=== PATIENT | female | born 1950 | race Caucasian/White ===

== ENCOUNTER 2019-01-30 18:06 | Inpatient (IN) ==
[2019-01-30] MEDS ORDERED: MAGNESIUM HYDROXIDE SUSP 30 ML UDC PO PRN (18:25)
[2019-01-30] MEDS ORDERED: POLYETHYLENE (MIRALAX) 17 GM PACK PO PRN (18:25)
[2019-01-30] MEDS ORDERED: ALUMINUM/MAGNESIUM SUSP 30 ML UDC PO PRN (18:25)
[2019-01-30] MEDS ORDERED: ACETAMINOPHEN 325 MG TAB PO PRN (18:25)
[2019-01-30] MEDS ORDERED: HEPARIN SODIUM/DEXTROSE 25,000 UNITS/500 ML BAG IV SCH (18:45)
--- OUTSIDE RECORDS SUMMARY | 2019-01-30 20:55 | External Medical Summary | Continuity of Care Document ---
:1950 Author Name Yves Cruz Address Unavailable Unavailable , Care Team Providers Name Role Phone Non[facility] [email or web address] Unavailable [email or web address] Randi TREJO Unavailable Unavailable Problems Active medical history not documented Allergies and Adverse Reactions Lipitor TABS (Allergy) Medications Levemir FlexTouch 100 UNIT/ML Subcutaneous Solution Pen-inje ctor; 52 units BID Start: 08-Feb-2016 Refills: 0 metFORMIN HCl - 500 MG Oral Tablet; 1 tablet twice a day Start: 08-Feb-2016 Refills: 0 Pantoprazole Sodium 40 MG Oral Tablet Delayed Release; TAKE 1 TABLET DAILY. Start: 08-Feb-2016 Refills: 0 Losartan Potassium-HCTZ 50-12.5 MG Oral Tablet; TAKE 1 TABLE T DAILY. Start: 08-Feb-2016 Refills: 0 Levothyroxine Sodium 112 MCG Oral Tablet; TAKE 1 TABLET MICHAEL Y DIRECTED. Start: 08-Feb-2016 Refills: 0 Simvastatin 40 MG Oral Tablet; TAKE 1 TABLET DAILY DIRECT ED. Start: 08-Feb-2016 Refills: 0 traZODone HCl - 50 MG Oral Tablet; TAKE 1/2 TABLET AT BEDTIM E. Start: 08-Feb-2016 Refills: 0 Sertraline HCl - 100 MG Oral Tablet; TAKE 1 TABLET DAILY DIRECTED. Start: 08-Feb-2016 Refills: 0 Fish Oil 1000 MG Oral Capsule; 2 capsules BID Start: 08-Feb-2016 Refills: 0 Procedures History of Cholecystectomy Status: Compl eted History of Section Status: Comp leted Immunizations Immunizations not documented Plan of Treatment Planned Observations Planned Goals not documented Results No Known Results Results not documented
[2019-01-30] MEDS: PATIENT'S HEIGHT AND/OR WEIGHT NEEDED SCH (21:11)
[2019-01-30] MEDS ORDERED: ALBUT/IPRATROP 3MG/0.5MG NEB 3 ML VIAL NEB PRN (21:12)
--- NOTE | 2019-01-30 21:25 | History & Physical Report ---
Date of Service January 30, 2019 Assessment & Plan (1) Sepsis: Admit patient to ICU for sepsis and metabolic acidosis Vital signs every 4 hours per ICU ABGs pending BNP, CBC, CMP, repeat lactic acid, influenza A and B swab, blood cultures, urine cultures, respiratory cultures pending, procalcitonin to rule out pneumonia. VQ scan to rule out pulmonary embolism as a possible cause of acute respiratory failure. Troponin x2 every 6 hours with EKGs. TTE to rule out cardiac strain Continue heparin drip that was started in [place] emergency room until proven otherwise that there was no PE. Chest x-ray stat pending Patient failed treatment with azithromycin Started cefepime to cover for Pseudomonas as well, empirically. Follow-up blood and respiratory cultures. DVT prophylaxis patient is already on heparin drip. Full code Present on Admission?: Yes (2) Hypertension: This point patient has lower blood pressure 102/60. Hold home medication losartan hydrochlorothiazide. Continue monitoring blood pressure per ICU. If patient continues to be hypotensive give only small boluses of normal saline such as 250 cc. Watch for volume overload Present on Admission?: Yes (3) Hyperlipidemia: Continue rosuvastatin 20 mg nightly. Lipid panel pending in a.m. Present on Admission?: Yes (4) Metabolic acidosis: As above. Repeat lactic acid. Treat with antibiotics and underlying cause. Present on Admission?: Yes (5) Diabetes mellitus type 2 in obese: Glycemic control per pharmacy. Hold metformin while patient is in acute kidney failure and needs radiological procedures in the hospital. Present on Admission?: Yes (6) Hypothyroidism: Continue home dose of Synthroid 88 mcg. Present on Admission?: Yes (7) Nicotine abuse: Offered nicotine patch. Patient advised to stop smoking. Present on Admission?: Yes (8) Congestive heart failure: BNP elevated to 158 (normal 0-100) per [place] ED Repeat BNP Strict in and out Daily weight Watch for volume overload Present on Admission?: Yes (9) Acute kidney failure: Avoid nephrotoxic agents. Monitor creatinine and GFR. Hold metformin while patient in acute kidney failure. Present on Admission?: Yes (10) Acute respiratory failure: Patient is not on oxygen at home. Could be related to pulmonary embolism and or pneumonia. Started cefepime 2 g now and then managed by pharmacy Solu-Medrol 40 mg twice daily IV Duo nebs every 4 hours as needed for shortness of breath Symbicort 2 puffs twice daily Continue home dose of albuterol HFA every 6 hours as needed Respiratory culture pending Supportive treatment and continue supplemental oxygen while patient hypoxic. Present on Admission?: Yes History of Present Illness Chief Complaint: Shortness of breath, subjective fever and cough for 3 weeks Primary Care Provider: Ana Carbajal Patient is a 68 years old female with past medical history of hypertension, diabetes, hyperlipidemia, hypothyroidism on Synthroid , anxiety disorder, smoker approximately half a pack for 35 years is direct admit from [facility] emergency department to [facility] for respiratory failure and suspicion that patient may have pulmonary embolism since her d-dimer was elevated to 4000. Patient presented today to the [facility] emergency room for shortness of breath and feeling sick. Patient states that her cough and broke bronchitis has been ongoing for 3 weeks and it started when she was exposed to her daughter, who was also sick. Patient saw her primary care physician for 3 times for this issue and she was prescribed Deltasone oral taper, azithromycin, cough medicine guaifenesin codeine. Patient states she started taking this medication on Friday this week and it did not help her and that is why she went to the emergency room [place] with her . Patient said also that she had urinary tract infection after she was diagnosed with bronchitis and that has been ongoing as well. Patient said that she does not use oxygen at home but they put her in the emergency room due to shortness of breath to 2 L of oxygen. Patient never had issues with her kidneys in the past. She takes metformin p.o. to control her diabetes. In the emergency room at [facility] labs were drawn and it shows a BNP of 158 (normal is 0-100), D-dimers of 4000 (100-400), lactic acid of 3(normal 0.4-2), PT 14.9, INR 1.29, PTT 15.4, WBC 26.6, troponin of 0.11 (normal 0-0.10), elevated creatinine kinase 814, creatinine 3.7, GFR 13, sodium 137, potassium 2.9, anion gap 21.9, BUN 51. Repeated lactic acid was 2.8. EKG shows sinus rhythm with LVH at [address] segment Patient was given 2 L of normal saline in the [place] emergency room, and [address] in [address] EMS. She was given Solu-Medrol 125 mg IV in the emergency room, she was given albuterol treatment, she was given Zosyn 3.3751, and patient was started on heparin drip for possible PE. Decision was made to admit patient to the intensive care unit for possibly pulmonary embolism, sepsis, metabolic acidosis, acute kidney failure, dehydration, possible pneumonia, and possibly urinary tract infection. 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 Beliefs That Will Affect Care: None Current Living Situation: Spouse Other Information That Helps Us Care for You: Yes Feels Safe at Home: Yes Safety Concerns: Feels Safe At This Time Smoking Status: Current every day smoker Tobacco Type: cigarettes ; Cigarettes Per Day: 10 ; Tobacco Cessation Education Requested by Patient: No Hx Alcohol Use: No Hx Substance Use: No Review of Systems Review of Systems: All systems reviewed & are unremarkable except as noted in HPI & below Physical Exam Constitutional: WD/WN, vitals as above well developed, + acute distress and + obese Eyes: PERRL, conjunctivae normal, anicteric sclerae ENMT: external ear and nose normal, oropharynx normal Neck: trachea midline, no thyromegaly Respiratory: Auscultation: + crackles and + wheezes Cardiovascular: Heart Sounds: normal S1 and normal S2 Palpation: + palpable S3 Vessels: dorsalis pedis pulses present Gastrointestinal (Abdomen): normal bowel sounds, soft, nontender, no hepatosplenomegaly Musculoskeletal: no cyanosis or clubbing, extremities motor strength 5/5 Skin: no rashes, warm and dry Neurologic: patellar DTR's 2+ bilat, sensation intact Lymphatic: no cervical or axillary lymphadenopathy Code Status & VTE Plan Code Status Full code VTE Prophylaxis Plan VTE Prophylaxis will be ordered: Yes PG Care Time/CCT Total # of Minutes Spent Total Time Spent with Patient: Total time spent is greater than 50% in coordination of care (as documented) at patient's floor/unit and/or counseling patient:
[2019-01-30] MEDS ORDERED: PHARMACY GLYCEMIC MGMT CONSULT PRN (21:47)
[2019-01-30] MEDS ORDERED: SODIUM CHLOR 7% 4 ML NEB INH PRN (22:26)
[2019-01-30] MEDS ORDERED: methylPREDNISolone 40 MG in SYRINGE 0 ML IV SCH (22:30)
--- NOTE | 2019-01-30 22:31 | XRay Report ---
XR chest 1V portable CLINICAL HISTORY: Pneumonia. Shortness of breath. COMPARISON STUDY: Outside [facility] study dated 01/30/2019 FINDINGS: The heart is enlarged. There is an interstitial pulmonary edema pattern. There are small bi lateral pleural effusions.[ IMPRESSION: Cardiomegaly. Small bilateral pleural effusions. Interstitial pulmonary edema pattern. Cl inical and radiographic follow-up is recommended. Electronically signed by: Ravi Lake M.D. 01/30/2019 10:30 PM
--- NOTE | 2019-01-30 22:35 | Nuclear Medicine Report ---
NUCLEAR MEDICINE PULMONARY VENTILATION PERFUSION STUDY CLINICAL HISTORY: Shortness of breath. Possible pulmonary embolism. COMPARISON STUDY: Chest x-ray performed the same day FINDINGS: The patient was ventilated utilizing 32.3 mCi of technetium 99m DTPA aerosol. The patient w as perfused utilizing 5.3 mCi of technetium 99m MAA. There is a heterogeneous perfusion pattern with multiple small moderate perfusion defects. The ventil ation study demonstrates central deposition of the aerosol consistent with airway disease. The majori ty of the defects appear matched. This examination is of low to intermediate probability of acute pul monary embolism. CT angiography the chest should be considered in follow-up. IMPRESSION: 1. Difficult study to interpret given the abnormal chest x-ray with interstitial pulmonary edema, and bilateral pleural effusions 2. Multiple small to moderate perfusion defects, most of which appear to be matched. 3. This examination is of low to intermediate probability of acute pulmonary embolism. CT angiography of the chest should be considered in follow-up Electronically signed by: Ravi Lake M.D. 01/30/2019 10:34 PM
[2019-01-30] MEDS ORDERED: ALBUTEROL HFA 8 GM INHALER INH ONE (23:00)
[2019-01-30] MEDS ORDERED: GUAIFENESIN/DEXTROM SYRUP 200MG/20MG 10ML UDC PO PRN (23:11)
[2019-01-30 23:22] LABS: Basophils # (auto) 0.01 K/uL (0-0.2); Eosinophils # (auto) 0.63 K/uL (0-0.5); Hematocrit (blood only) 27.9 % (37-47); Hemoglobin 9.2 g/dL (12.0-16.0); Immature Granulocytes # (auto) 0.07 K/uL (0.00-0.02); Immature Granulocytes % (auto) 0.3 %; Lymphocytes # (auto) 0.79 K/uL (1.2-3.4); Lymphocytes % (auto) 3.8 %; Mean Corpuscular Hemoglobin 27.5 pg (25-34); Mean Corpuscular Volume 83.3 fL (80-100); Mean Platelet Volume 10.2 fL (7.4-10.4); Monocytes # (auto) 0.57 K/uL (0.11-0.59); Monocytes % (auto) 2.7 %; Neutrophils # (auto) 18.66 K/uL (1.4-6.5); Neutrophils % (auto) 90.2 %; Platelet Count 203 K/uL (130-400); RDW Coefficient of Variation 14.4 % (11.5-14.5); RDW Standard Deviation 43.5 fL (36.4-46.3); Red Blood Count 3.35 M/uL (4.2-5.4); White Blood Count 20.73 K/uL (4.8-10.8)
[2019-01-30] MEDS ORDERED: CARBOHYDRATES FOR HYPOGLYCEMIA PO PRN (23:30)
[2019-01-30] MEDS ORDERED: GLUCAGON FOR INJ 1 MG VIAL IM PRN (23:30)
[2019-01-30] MEDS ORDERED: GLUCOSE 10 TABS/TUBE PO PRN (23:30)
[2019-01-30] MEDS ORDERED: DEXTROSE 50% 50 ML SYRINGE IV PRN (23:30)
[2019-01-30] MEDS ORDERED: GLUCOSE 40% GEL 15 GM TUBE PO PRN (23:30)
[2019-01-30 23:36] LABS: INR 1.4 (0.9-1.1); Partial Thromboplastin Ratio 2.9; Prothrombin Time 14.1 Seconds (9.0-12.0)
[2019-01-30 23:38] LABS: Appearance Urine Turbid (Clear); Bilirubin Urine Negative (Negative); Blood Urine 2+ (Negative); Color Urine Yellow; Epithelial Cell Urine Auto >30 /lpf (0-5); Glucose Urine UA Negative (Negative); Ketones Urine Negative (Negative); Leukocyte Esterase Urine Negative (Negative); Nitrite Urine Negative (Negative); Protein Urine 1+ (Negative); RBC Urine Automated 0-4 /hpf (0-4); Specific Gravity Urine 1.019 (1.000-1.030); Urobilinogen Urine Negative (Negative)
[2019-01-30 23:51] LABS: C Reactive Protein 15.5 mg/dl (0-0.29); Magnesium 1.9 mg/dl (1.8-2.4)
[2019-01-30 23:56] LABS: Troponin I 0.053 ng/ml (0-0.045)
[2019-01-30 23:57] LABS: Amorphous Sediment Urine Present (None Prsent); Bacteria Urine Automated 1+ (Negative); Calcium Oxalate Crystals Urine Present (None Prsent)
[2019-01-31 00:03] LABS: D Dimer 5240 ug/L FEU (0-500); Partial Thromboplastin Time 77.4 Seconds (21.0-31.0)
[2019-01-31 00:06] LABS: Influenza A virus by PCR Neg for Influ A (Neg); Influenza B virus by PCR Neg for Influ B (Neg)
[2019-01-31 00:15] LABS: Potassium 3.3 mmol/L (3.5-5.1)
[2019-01-31] MEDS: CEFEPIME 2,000 MG in SYRINGE 7.5 ML IV SCH ×2 (00:18→23:11)
[2019-01-31] MEDS: PATIENT'S ALLERGY INFO NEEDS ENTERED SCH ×3 (00:20→04:59)
--- NOTE | 2019-01-31 00:23 | Critical Care Consultation ---
Date of Consultation January 31, 2019 Assessment & Plan (1) Acute respiratory failure with hypoxia: -- Sepsis with shock Source likely pneumonia Follow-up septic work-up, procalcitonin, ESR: 86, CRP: 15.5, urine Legionella, mycoplasma IgM Influenza a and B PCR negative, nasal MRSA negative Continue with O2 supplementation to keep oxygen saturation between 90 to 92% BiPAP nightly and as needed shortness of breath Start Levophed if need be to Maintain map greater than 65 Continue with broad-spectrum antibiotic along with atypical coverage (doxycycline) given that the patient's QTC is 510 Will DC steroids for the time being. 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 -- HAGMA Deltadelta: Less than 1, metabolic acidosis plus non-anion gap acidosis Likely sec to lactic acidosis as per the labs from the other hospital Follow-up urine lites Follow up VBG Monitor --Acute kidney injury Follow-up urine lites Monitor BUN/creatinine Avoid nephrotoxic medication Strict in and out --Elevated troponin Likely type II LA EKG shows no ST-T wave changes Monitor --Elevated d-dimer Likely secondary to sepsis VQ scan reviewed personally no VQ mismatch appreciated No swelling of bilateral lower extremity DC heparin drip --Hypothyroidism Follow-up TSH --Normocytic anemia Monitor H&H --Diabetes mellitus type 2 Insulin sliding scale --Hypokalemia Replace it --Secondary hypercoagulable state Subcu heparin (2) Acute kidney failure: (3) Hypothyroidism: (4) Metabolic acidosis: (5) Sepsis: (6) Fluid overload: (7) Diabetes mellitus type 2 in obese: (8) Hyperlipidemia: (9) Hypertension: History of Present Illness Reason for Consultation: Sepsis with shock Attending Physician: Tony Celaya MD History of Present Illness 68-year-old female with past medical history of hypertension, hypothyroidism, diabetes mellitus type 2, active smoker is transferred from [facility] emergency department as patient was found to be hypoxic over there with saturation in the 80s. Patient had d-dimer done over there which was found to be 4000 and a creatinine being 3.7 they are worried about PE and wanted to VQ scan the facility which was not available over there. Patient got 2 L of normal saline over there and [address] patient got to 50 mL while in the ICU here. She also got Zosyn and was started on heparin drip for possible PE. At the time of presentation. Patient is coughing actively in mild respiratory distress. She states that she has been having cough and shortness of breath which is getting progressively worse in the last 3 weeks she took antibiotics 2 courses so far along with prednisone and failed to improve. Cough is yellowish- green in color. Positive subjective fever positive chills. She did complain of dysuria before and mild dysuria today. Does complain of loose bowel movements which she associates with metformin and it has not changed in frequency or consistency. No hemoptysis.No hematuria, no hematochezia. No runny nose or tearing from the eyes. Patient's daughter had similar symptoms prior to patient falling sick. Patient denies any travel history. Patient has never been intubated in the past. 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 No recent contact to any domestic animals, no pets at home. Allergies Allergy/AdvReac Type Severity Reaction Status Date / Time atorvastatin [From Lipitor] AdvReac Weakness Verified 01/30/19 21:45 Home Medications Home Medications Medication Instructions Recorded Confirmed Type albuterol sulfate [Ventolin HFA] 2 inh INHALATION Q4H PRN 01/30/19 01/30/19 History codeine-guaifenesin 5 - 10 ml PO HS PRN 01/30/19 01/30/19 History dulaglutide [Trulicity] 0.75 mg SUBCUT WK 01/30/19 01/30/19 History levothyroxine 88 mcg PO DAILY 01/30/19 01/30/19 History losartan-hydrochlorothiazide 1 tab PO DAILY 01/30/19 01/30/19 History metformin 1,000 mg PO DAILY 01/30/19 01/30/19 History pantoprazole 40 mg PO DAILY 01/30/19 01/30/19 History rosuvastatin 20 mg PO DAILY 01/30/19 01/30/19 History sertraline 100 mg PO DAILY 01/30/19 01/30/19 History trazodone 50 mg PO HS PRN 01/30/19 01/30/19 History Patient History Social History Preferred Language: Danish Communication Ability: Effective Manager Fleet Required: No Beliefs That Will Affect Care: None Current Living Situation: Spouse Other Information That Helps Us Care for You: Yes Feels Safe at Home: Yes Safety Concerns: Feels Safe At This Time Smoking Status: Current every day smoker Tobacco Type: cigarettes ; Cigarettes Per Day: 10 ; Tobacco Cessation Education Requested by Patient: No Hx Alcohol Use: No Hx Substance Use: No Review of Systems Review of Systems: All systems reviewed & are unremarkable except as noted in HPI & below Physical Exam Physical Exam: Constitutional: Mild respiratory distress HEENT: EOMI, PERRLA Respiratory system: Decreased air entry bilaterally, positive bilateral lower lobe crackles, no wheeze, no rhonchi CVS: S1-S2 positive, positive 2 out of 6 systolic ejection murmur appreciated best at the aorta Abdomen: Soft, nontender, nondistended, positive bowel sounds x4 Extremities: +2 pulses bilaterally radialis/ dorsalis pedis, no edema, no cyanos is Neuro: Awake alert oriented x3 Psych: Normal mood and affect G/U: No Martinez Constitutional: + in distress Eyes: PERRL, conjunctivae normal, anicteric sclerae ENMT: external ear and nose normal, oropharynx normal Neck: trachea midline, no thyromegaly normal visual inspection; negative Kernig's sign Respiratory: Auscultation: + crackles Cardiovascular: RRR, no murmur, no edema Heart Sounds: + murmur Vessels: + JVD Extremities: normal capillary refill; no edema Chest (Breasts): normal inspection/palpation of breasts Gastrointestinal (Abdomen): normal bowel sounds, soft, nontender, no hepatosplenomegaly Musculoskeletal: no cyanosis or clubbing, extremities motor strength 5/5 Skin: no rashes, warm and dry Neurologic: PERRL, EOMI, accommodation nl, no face palsy, no dysarthria Psychiatric: A+Ox3, euthymic affect Orientation: alert and oriented x 3 Apperance: appropriately groomed Lymphatic: no cervical or axillary lymphadenopathy Results & Data Vital Signs (Past 12 Hours) Vital Signs Temp Pulse Resp BP BP Pulse Ox 01/30/19 23:01 74 18 103/64 95 01/30/19 23:00 73 21 95 01/30/19 22:51 72 21 90/58 L 94 10/05/19 22:50 78 21 94 01/30/19 22:42 89 21 103/77 95 01/30/19 22:40 93 H 20 92 01/30/19 22:31 78 25 H 89/59 L 95 01/30/19 22:29 82 23 98/50 L 94 01/30/19 22:28 92 01/30/19 21:43 36.5 C 20 102/60 96 Laboratory Results 01/30/19 23:06 01/30/19 23:03 01/31/19 01/30/19 01/30/19 Range/Units 00:08 23:15 23:06 WBC (4.8-10.8) K/uL RBC (4.2-5.4) M/uL Hgb (12.0-16.0) g/dL Hct (37-47) % MCV (80-100) fL MCH (25-34) pg MCHC (32-36) g/dL RDW Std Deviation (36.4-46.3) fL RDW Coeff of Brody (11.5-14.5) % Plt Count (130-400) K/uL MPV (7.4-10.4) fL Immature Gran % (Auto) % Neut % (Auto) % Lymph % (Auto) % [place] % (Auto) % Eos % (Auto) % Baso % (Auto) % Immature Gran # (Auto) (0.00-0.02) K/uL Neut # (Auto) (1.4-6.5) K/uL Lymph # (Auto) (1.2-3.4) K/uL [place] # (Auto) (0.11-0.59) K/uL Eos # (Auto) (0-0.5) K/uL Baso # (Auto) (0-0.2) K/uL ESR (0-21) mm/hr PT (9.0-12.0) Seconds INR (0.9-1.1) APTT (21.0-31.0) Seconds PTT Ratio D-Dimer (0-500) ug/L FEU Sodium (136-145) mmol/L Potassium (3.5-5.1) mmol/L Chloride (98-107) mmol/L Carbon Dioxide (21-32) mmol/L Anion Gap (3-11) BUN (7-18) mg/dl Creatinine (0.6-1.2) mg/dl Est Cr Clr Drug Dosing ml/min Est GFR ( Amer) Est GFR (Non-Af Amer) BUN/Creatinine Ratio (10-20) Glucose (70-99) mg/dl POC Glucose 253 H (70-99) Estimat Average Glucose Hemoglobin A1c Lactate (0.4-2.0) mmol/L Calcium (8.5-10.1) mg/dl Phosphorus Magnesium (1.8-2.4) mg/dl Total Bilirubin (0.2-1) mg/dl AST (15-37) U/L ALT (12-78) U/L Alkaline Phosphatase (45-117) U/L Troponin I (0-0.045) ng/ml C-Reactive Protein (0-0.29) mg/dl NT-Pro-B Natriuret Pep (0-900) pg/ml Total Protein (6.4-8.2) gm/dl Albumin (3.4-5.0) gm/dl Globulin (2.5-4.0) gm/dl Albumin/Globulin Ratio (0.9-2) Procalcitonin (0-0.5) ng/ml TSH Urine Color Yellow Urine Appearance Turbid A (Clear) Urine pH 5.0 (4.5-7.5) Ur Specific [place] 1.019 (1.000-1.030) Urine Protein 1+ H (Negative) Urine Glucose (UA) Negative (Negative) Urine Ketones Negative (Negative) Urine Blood 2+ H (Negative) Urine Nitrite Negative (Negative) Urine Bilirubin Negative (Negative) Urine Urobilinogen Negative (Negative) Ur Leukocyte Esterase Negative (Negative) Urine WBC (Auto) 5-10 H (0-5) /hpf Urine RBC (Auto) 0-4 (0-4) /hpf U Hyaline Cast (Auto) 5-10 H (0-5) /lpf U Epithel Cells (Auto) >30 H (0-5) /lpf Urine Bacteria (Auto) 1+ H (Negative) Ur Renal Epithelial Cell Not Reportable Calcium Oxalate Crystal Present A (None Prsent) Amorphous Sediment Present A (None Prsent) Urine Yeast Not Reportable Nasal Screen MRSA (PCR) (Negative) Influenza Type A (PCR) (Neg) Influenza Type B (PCR) (Neg) Mycoplasma pneumon IgM Pending 01/30/19 01/30/19 01/30/19 Range/Units 23:06 23:03 23:03 WBC 20.73 H (4.8-10.8) K/uL RBC 3.35 L (4.2-5.4) M/uL Hgb 9.2 L (12.0-16.0) g/dL Hct 27.9 L (37-47) % MCV 83.3 (80-100) fL MCH 27.5 (25-34) pg MCHC 33.0 (32-36) g/dL RDW Std Deviation 43.5 (36.4-46.3) fL RDW Coeff of Brody 14.4 (11.5-14.5) % Plt Count 203 (130-400) K/uL MPV 10.2 (7.4-10.4) fL Immature Gran % (Auto) 0.3 % Neut % (Auto) 90.2 % Lymph % (Auto) 3.8 % [place] % (Auto) 2.7 % Eos % (Auto) 3.0 % Baso % (Auto) 0.0 % Immature Gran # (Auto) 0.07 H (0.00-0.02) K/uL Neut # (Auto) 18.66 H (1.4-6.5) K/uL Lymph # (Auto) 0.79 L (1.2-3.4) K/uL [place] # (Auto) 0.57 (0.11-0.59) K/uL Eos # (Auto) 0.63 H (0-0.5) K/uL Baso # (Auto) 0.01 (0-0.2) K/uL ESR 86 H (0-21) mm/hr PT (9.0-12.0) Seconds INR (0.9-1.1) APTT (21.0-31.0) Seconds PTT Ratio D-Dimer (0-500) ug/L FEU Sodium (136-145) mmol/L Potassium (3.5-5.1) mmol/L Chloride (98-107) mmol/L Carbon Dioxide (21-32) mmol/L Anion Gap (3-11) BUN (7-18) mg/dl Creatinine (0.6-1.2) mg/dl Est Cr Clr Drug Dosing ml/min Est GFR ( Amer) Est GFR (Non-Af Amer) BUN/Creatinine Ratio (10-20) Glucose (70-99) mg/dl POC Glucose (70-99) Estimat Average Glucose Hemoglobin A1c Lactate (0.4-2.0) mmol/L Calcium (8.5-10.1) mg/dl Phosphorus Magnesium (1.8-2.4) mg/dl Total Bilirubin (0.2-1) mg/dl AST (15-37) U/L ALT (12-78) U/L Alkaline Phosphatase (45-117) U/L Troponin I (0-0.045) ng/ml C-Reactive Protein (0-0.29) mg/dl NT-Pro-B Natriuret Pep (0-900) pg/ml Total Protein (6.4-8.2) gm/dl Albumin (3.4-5.0) gm/dl Globulin (2.5-4.0) gm/dl Albumin/Globulin Ratio (0.9-2) Procalcitonin 25.62 H (0-0.5) ng/ml TSH Urine Color Urine Appearance (Clear) Urine pH (4.5-7.5) Ur Specific [place] (1.000-1.030) Urine Protein (Negative) Urine Glucose (UA) (Negative) Urine Ketones (Negative) Urine Blood (Negative) Urine Nitrite (Negative) Urine Bilirubin (Negative) Urine Urobilinogen (Negative) Ur Leukocyte Esterase (Negative) Urine WBC (Auto) (0-5) /hpf Urine RBC (Auto) (0-4) /hpf U Hyaline Cast (Auto) (0-5) /lpf U Epithel Cells (Auto) (0-5) /lpf Urine Bacteria (Auto) (Negative) Ur Renal Epithelial Cell Calcium Oxalate Crystal (None Prsent) Amorphous Sediment (None Prsent) Urine Yeast Nasal Screen MRSA (PCR) (Negative) Influenza Type A (PCR) (Neg) Influenza Type B (PCR) (Neg) Mycoplasma pneumon IgM 01/30/19 01/30/19 01/30/19 Range/Units 23:03 23:03 23:03 WBC (4.8-10.8) K/uL RBC (4.2-5.4) M/uL Hgb (12.0-16.0) g/dL Hct (37-47) % MCV (80-100) fL MCH (25-34) pg MCHC (32-36) g/dL RDW Std Deviation (36.4-46.3) fL RDW Coeff of Brody (11.5-14.5) % Plt Count (130-400) K/uL MPV (7.4-10.4) fL Immature Gran % (Auto) % Neut % (Auto) % Lymph % (Auto) % [place] % (Auto) % Eos % (Auto) % Baso % (Auto) % Immature Gran # (Auto) (0.00-0.02) K/uL Neut # (Auto) (1.4-6.5) K/uL Lymph # (Auto) (1.2-3.4) K/uL [place] # (Auto) (0.11-0.59) K/uL Eos # (Auto) (0-0.5) K/uL Baso # (Auto) (0-0.2) K/uL ESR (0-21) mm/hr PT (9.0-12.0) Seconds INR (0.9-1.1) APTT (21.0-31.0) Seconds PTT Ratio D-Dimer (0-500) ug/L FEU Sodium 137 (136-145) mmol/L Potassium 3.3 L (3.5-5.1) mmol/L Chloride 106 (98-107) mmol/L Carbon Dioxide 15 L (21-32) mmol/L Anion Gap 16.0 H (3-11) BUN 51 H (7-18) mg/dl Creatinine 3.07 H (0.6-1.2) mg/dl Est Cr Clr Drug Dosing 15.0 ml/min Est GFR ( Amer) 17.5 Est GFR (Non-Af Amer) 15.1 BUN/Creatinine Ratio 16.7 (10-20) Glucose 226 H (70-99) mg/dl POC Glucose (70-99) Estimat Average Glucose Pending Hemoglobin A1c Pending Lactate 1.9 (0.4-2.0) mmol/L Calcium 7.6 L (8.5-10.1) mg/dl Phosphorus Pending Magnesium 1.9 (1.8-2.4) mg/dl Total Bilirubin 0.5 (0.2-1) mg/dl AST 21 (15-37) U/L ALT 32 (12-78) U/L Alkaline Phosphatase 140 H (45-117) U/L Troponin I 0.053 H* (0-0.045) ng/ml C-Reactive Protein 15.50 H (0-0.29) mg/dl NT-Pro-B Natriuret Pep 4903 H (0-900) pg/ml Total Protein 7.0 (6.4-8.2) gm/dl Albumin 2.6 L (3.4-5.0) gm/dl Globulin 4.4 H (2.5-4.0) gm/dl Albumin/Globulin Ratio 0.6 L (0.9-2) Procalcitonin (0-0.5) ng/ml TSH Pending Urine Color Urine Appearance (Clear) Urine pH (4.5-7.5) Ur Specific [place] (1.000-1.030) Urine Protein (Negative) Urine Glucose (UA) (Negative) Urine Ketones (Negative) Urine Blood (Negative) Urine Nitrite (Negative) Urine Bilirubin (Negative) Urine Urobilinogen (Negative) Ur Leukocyte Esterase (Negative) Urine WBC (Auto) (0-5) /hpf Urine RBC (Auto) (0-4) /hpf U Hyaline Cast (Auto) (0-5) /lpf U Epithel Cells (Auto) (0-5) /lpf Urine Bacteria (Auto) (Negative) Ur Renal Epithelial Cell Calcium Oxalate Crystal (None Prsent) Amorphous Sediment (None Prsent) Urine Yeast Nasal Screen MRSA (PCR) (Negative) Influenza Type A (PCR) (Neg) Influenza Type B (PCR) (Neg) Mycoplasma pneumon IgM 01/30/19 01/30/19 01/30/19 Range/Units 23:03 23:00 21:00 WBC (4.8-10.8) K/uL RBC (4.2-5.4) M/uL Hgb (12.0-16.0) g/dL Hct (37-47) % MCV (80-100) fL MCH (25-34) pg MCHC (32-36) g/dL RDW Std Deviation (36.4-46.3) fL RDW Coeff of Brody (11.5-14.5) % Plt Count (130-400) K/uL MPV (7.4-10.4) fL Immature Gran % (Auto) % Neut % (Auto) % Lymph % (Auto) % [place] % (Auto) % Eos % (Auto) % Baso % (Auto) % Immature Gran # (Auto) (0.00-0.02) K/uL Neut # (Auto) (1.4-6.5) K/uL Lymph # (Auto) (1.2-3.4) K/uL [place] # (Auto) (0.11-0.59) K/uL Eos # (Auto) (0-0.5) K/uL Baso # (Auto) (0-0.2) K/uL ESR (0-21) mm/hr PT 14.1 H (9.0-12.0) Seconds INR 1.4 H (0.9-1.1) APTT 77.4 H* (21.0-31.0) Seconds PTT Ratio 2.9 D-Dimer 5240 H* (0-500) ug/L FEU Sodium (136-145) mmol/L Potassium (3.5-5.1) mmol/L Chloride (98-107) mmol/L Carbon Dioxide (21-32) mmol/L Anion Gap (3-11) BUN (7-18) mg/dl Creatinine (0.6-1.2) mg/dl Est Cr Clr Drug Dosing ml/min Est GFR ( Amer) Est GFR (Non-Af Amer) BUN/Creatinine Ratio (10-20) Glucose (70-99) mg/dl POC Glucose (70-99) Estimat Average Glucose Hemoglobin A1c Lactate (0.4-2.0) mmol/L Calcium (8.5-10.1) mg/dl Phosphorus Magnesium (1.8-2.4) mg/dl Total Bilirubin (0.2-1) mg/dl AST (15-37) U/L ALT (12-78) U/L Alkaline Phosphatase (45-117) U/L Troponin I (0-0.045) ng/ml C-Reactive Protein (0-0.29) mg/dl NT-Pro-B Natriuret Pep (0-900) pg/ml Total Protein (6.4-8.2) gm/dl Albumin (3.4-5.0) gm/dl Globulin (2.5-4.0) gm/dl Albumin/Globulin Ratio (0.9-2) Procalcitonin (0-0.5) ng/ml TSH Urine Color Urine Appearance (Clear) Urine pH (4.5-7.5) Ur Specific [place] (1.000-1.030) Urine Protein (Negative) Urine Glucose (UA) (Negative) Urine Ketones (Negative) Urine Blood (Negative) Urine Nitrite (Negative) Urine Bilirubin (Negative) Urine Urobilinogen (Negative) Ur Leukocyte Esterase (Negative) Urine WBC (Auto) (0-5) /hpf Urine RBC (Auto) (0-4) /hpf U Hyaline Cast (Auto) (0-5) /lpf U Epithel Cells (Auto) (0-5) /lpf Urine Bacteria (Auto) (Negative) Ur Renal Epithelial Cell Calcium Oxalate Crystal (None Prsent) Amorphous Sediment (None Prsent) Urine Yeast Nasal Screen MRSA (PCR) Negative (Negative) Influenza Type A (PCR) Neg for Influ A (Neg) Influenza Type B (PCR) Neg for Influ B (Neg) Mycoplasma pneumon IgM Diagnostic Findings Chest x-ray: Shows increased vascular congestion. Infiltrate cannot be excluded especially retrocardiac. PG Care Time/CCT Total # of Minutes Spent Total Time Spent with Patient: Total time spent is greater than 50% in coordination of care (as documented) at patient's floor/unit and/or counseling patient: Critical Care Time: Yes Total Critical Care Time: 70
[2019-01-31] MEDS: BUDESONIDE/FORMOTEROL FUMARATE 160/4.5 60 PUFFS/INHALER INH SCH ×3 (00:25→20:48)
[2019-01-31 00:30] LABS: Albumin Globulin Ratio 0.6 (0.9-2); Albumin Level 2.6 gm/dl (3.4-5.0); BUN Creatinine Ratio 16.7 (10-20); Bilirubin,Total 0.5 mg/dl (0.2-1); Calcium 7.6 mg/dl (8.5-10.1); Est GFR (African American) 17.5; Est GFR (Non-African American) 15.1; Globulin 4.4 gm/dl (2.5-4.0)
[2019-01-31] MEDS ORDERED: NOREPINEPHRINE BIT INJ 8 MG in DEXTROSE 5% 500 ML IV SCH (00:30)
[2019-01-31 00:38] LABS: Phosphorus 2.9 mg/dl (2.5-4.9); Thyroid Stimulating Hormone 0.183 uIu/ml (0.300-4.500)
--- NOTE | 2019-01-31 00:41 | Procedure Note ---
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 Irvin Wadsworth Indication: Hypotension with shock Consent: Signed by patient and verified with timeout prior to procedure. Anesthesia: 1% lidocaine without epinephrine local. Procedure: Consent was verified and timeout performed. Appropriate imaging studies were reviewed prior to the procedure. Under aseptic and sterile condition, right IJ vein was accessed under direct ultrasound guidance. Guidewire was confirmed to be within the lumen of vein with the help of ultrasound. Catheter was introduced via Seldinger technique. Guide a wire was removed. Good non-pulsatile blood flow was appreciated from all the ports. The catheter was placed at 16 cm and sutured in place. BioPatch was applied to the catheter and a sterile Tegaderm dressing was applied over the catheter with careful attention to sterility. Lung sliding was appreciated post procedure with the help ultrasound. Chest x-ray to follow Patient tolerated the procedure well. Blood loss: Less than 2 cc Complications: None Coding CPT Codes Tubes, Drains, and Vasc Access - Tubes, Drains, and Vasc Access: Place catheter in vein superior or inferior vena cava ([id number]) Tubes, Drains, and Vasc Access - Tubes, Drains, and Vasc Access: Ultrasound Guidance For Vascular ([id number])
[2019-01-31] MEDS ORDERED: MAGNESIUM SULFATE / D5W 1 GM/100 ML BAG IV ONE (00:45)
[2019-01-31] MEDS ORDERED: POTASSIUM PHOSPHATE 30 MMOL in SODIUM CHLORIDE 0.9% 500 ML IV ONE (00:45)
[2019-01-31] MEDS: INSULIN ASPART 100 UNITS/ML 3 ML PEN SC SCH ×7 (00:46→23:11)
--- NOTE | 2019-01-31 00:47 | Procedure Note ---
Procedure Note Date of Service January 31, 2019 Bedside ultrasound: Lungs: B-lines appreciated bilaterally anterior and posteriorly. No pleural effusion appreciated bilaterally. No air bronchograms clearly appreciated. Heart: Good ejection fraction, minimal pericardial effusion, RVOT normal in size, no right ventricular strain. IVC approximately 1.8 to 2 cm with no variation. Coding CPT Codes Pulmonary/Thoracic - Pulmonary and Thoracic: US, Chest, real time with imaging documentation ([id number])
[2019-01-31 00:54] LABS: Base Excess VBG -8.7 mEq/L; pH VBG 7.25 (7.36-7.41)
[2019-01-31] MEDS ORDERED: INSULIN GLARGINE SOLOSTAR 100 UNITS/ML 3 ML PEN SC ONE ×3 (01:00→21:00)
[2019-01-31] MEDS ORDERED: NOREPINEPHRINE BIT INJ 4 MG in DEXTROSE 5% 250 ML IV SCH (01:45)
[2019-01-31] MEDS: DOXYCYCLINE HYCLATE 100 MG CAP PO SCH ×3 (01:45→20:49)
[2019-01-31 03:43] LABS: Hematocrit (blood only) 28.1 % (37-47); Hemoglobin 9.4 g/dL (12.0-16.0); Mean Corpuscular Hemoglobin 27.6 pg (25-34); Mean Corpuscular Hgb Conc 33.5 g/dL (32-36); Mean Corpuscular Volume 82.6 fL (80-100); Mean Platelet Volume 9.7 fL (7.4-10.4); Platelet Count 235 K/uL (130-400); RDW Coefficient of Variation 14.4 % (11.5-14.5); RDW Standard Deviation 43.8 fL (36.4-46.3); White Blood Count 25.91 K/uL (4.8-10.8)
[2019-01-31 04:04] LABS: Basophils # (auto) 0.02 K/uL (0-0.2); Basophils % (auto) 0.1 %; Dohle Bodies Occasional; Eosinophils # (auto) 1.09 K/uL (0-0.5); Eosinophils % (auto) 4.2 %; Immature Granulocytes # (auto) 0.11 K/uL (0.00-0.02); Immature Granulocytes % (auto) 0.4 %; Lymphocytes # (auto) 1.48 K/uL (1.2-3.4); Lymphocytes % (auto) 5.7 %; Monocytes # (auto) 0.96 K/uL (0.11-0.59); Monocytes % (auto) 3.7 %; Neutrophils # (auto) 22.25 K/uL (1.4-6.5); Neutrophils % (auto) 85.9 %
[2019-01-31 04:06] LABS: Albumin Globulin Ratio 0.6 (0.9-2); Albumin Level 2.7 gm/dl (3.4-5.0); BUN Creatinine Ratio 18.3 (10-20); Bilirubin,Total 0.6 mg/dl (0.2-1); Calcium 7.9 mg/dl (8.5-10.1); Creatinine Clr Calc Pharmacy 16.1 ml/min; Est GFR (African American) 19.2; Est GFR (Non-African American) 16.5; Globulin 4.7 gm/dl (2.5-4.0); Potassium 3.8 mmol/L (3.5-5.1); Total Protein 7.4 gm/dl (6.4-8.2)
[2019-01-31 04:28] LABS: Urine Potassium 23.2 mmol/L
[2019-01-31] MEDS ORDERED: INSULIN REGULAR 250 UNITS in SODIUM CHLORIDE 0.9% 247.5 ML IV SCH (04:45)
[2019-01-31] MEDS: PATIENT'S HEIGHT AND/OR WEIGHT NEEDED SCH (04:57)
[2019-01-31] MEDS: LEVOTHYROXINE SODIUM 88 MCG TABLET PO SCH (06:47)
[2019-01-31] MEDS: ALBUT/IPRATROP 3MG/0.5MG NEB 3 ML VIAL NEB SCH ×4 (06:58→19:14)
[2019-01-31] MEDS: ACETYLCYSTEINE 10% INHAL SOLN **DISPENSED FROM RESP. INH SCH ×2 (06:58→19:14)
--- NOTE | 2019-01-31 07:23 | XRay Report ---
XR chest 1V portable HISTORY: line placement COMPARISON: Chest 01/30/2019. FINDINGS: Cardiomegaly with diffuse interstitial thickening and small bilateral pleural effusions per sist. Right jugular central venous catheter terminates at the expected location of the proximal SVC. No pneumothorax. IMPRESSION: 1. Right jugular catheter terminates at the proximal SVC. No pneumothorax. 2. Mild pulmonary edema and small bilateral pleural effusions persist. Electronically signed by: Wilfredo Hopkins M.D. 01/31/2019 7:21 AM
[2019-01-31] MEDS ORDERED: INSULIN ASPART 100 UNITS/ML 3 ML PEN SC SCH ×2 (07:30→10:00)
[2019-01-31] MEDS ORDERED: PERFLUTREN LIPID MICROSPHERE (DEFINITY) IV ONE (08:14)
--- NOTE | 2019-01-31 09:30 | Pharmacy Report ---
Glycemic Control Consultation - Date of Service January 31, 2019 - Scope Scope: Glycemic Pharmacist consulted for glycemic control and to write orders per [facility] inpatient glycemic control protocol - Objective Weight: 76.6 kg Accuchecks BSG (last 24hrs): 01/30/19 01/31/19 01/31/19 23:03 00:08 03:31 Glucose 226 H 222 H POC Glucose 253 H POC Glucose (other) 01/31/19 01/31/19 01/31/19 03:34 05:36 06:41 Glucose POC Glucose 250 H 196 H POC Glucose (other) 138 H 01/31/19 01/31/19 01/31/19 07:04 07:28 08:12 Glucose POC Glucose 131 H 124 H 145 H POC Glucose (other) 01/31/19 09:04 Glucose POC Glucose 140 H POC Glucose (other) Laboratory Data (last 24hrs): 01/30/19 01/31/19 23:03 03:31 Potassium 3.3 L 3.8 D Carbon Dioxide 15 L 18 L Anion Gap 16.0 H 12.0 H Creatinine 3.07 H 2.85 H Est Cr Clr Drug Dosing 15.0 16.1 HbA1c: Hemoglobin A1c Pending 01/31/19 03:31 - Recent Pertinent Medications Outpatient Anti-diabetic Regimen: * Metformin * Trulicity * Toujeo [insulin glargine U-300] The patient is currently receiving: * Basal insulin: Lantus 20 units SQ x 1 dose * Prandial insulin: N/A- NPO * IV insulin infusion: Started at 3 units/hr but has been on hold for the last few hours Risk Factors for Insulin Resistance: * Steroids: Solumedrol 125mg IV x 1 @ [place] and Solumedrol 40mg IV x 1 @ [facility] * Infection * Pressors - Assessment & Plan Assessment & Plan: ASSESSMENT: * 68yo T2DM female admitted to ICU for sepsis and metabolic acidosis secondary to PNA. Empiric Rx with Cefepime. * Pt with hypotension on admission --> initiated on pressors but currently on hold * JEANIE --> hold outpatient metformin and Trulicity. Convert IV insulin insulin to SQ basal bolus insulin regimen * Steroid induced hyperglycemia --> pt given 1/2 of outpatient SQ basal insulin dosing (NPO) + initiated on IV insulin infusion per protocol for BSG >220. IV insulin infusion only ran for 1-2 hours and has been on hold. BSGs steady ~ 140's. * Discussion with RN, pt status is improving, productive cough, pressors off, may be starting a diet. Start transition process off of IV insulin infusion * Will transition off with Q4hr NovoLog correction- may stop IV insulin infusion after first dose given. * Will give additional Lantus if diet is ordered. Current dosing is maintaining BSGs in goal range with minimal contribution from the infusion. PLAN FOR INPATIENT GLYCEMIC CONTROL: * Continue IV insulin infusion per hyperglycemia protocol * Goal Range 140 - 180 mg/dl * In the critical care setting, continuous IV insulin infusion has been shown to be the best method for achieving glycemic targets. * Will transition off of IV insulin infusion to Sq basal bolus per protocol * Holding outpatient oral diabetes medications * Basal insulin * Lantus 20-30 units SQ Q24hrs depending on PO intake status and BSG * Bolus insulin * NovoLog per scale Q4hrs * Goal Range: Low 110 mg/dL - High 150 mg/dL * Correction Factor: 20 mg/dL/unit * Nutritional / Prandial insulin per carb ratio of 1 unit per 7 grams CHO consumed * Please note that the plan above was derived based on current level of insulin resistance and hospital stress. These recommendations are appropriate for inpatient admission only. Plan of care upon discharge will need to be reassessed to avoid potential outpatient hypo/hyperglycemia. Thank you.
[2019-01-31] MEDS ORDERED: DC IV INSULIN INFUSION 1 EA DEVI ONE (10:00)
[2019-01-31] MEDS: NICOTINE 14 MG/24 HR PATCH TD SCH (10:11)
[2019-01-31] MEDS: HEPARIN SOD 5,000 UNIT/0.5 ML VIAL SQ SCH ×2 (10:12→20:46)
--- NOTE | 2019-01-31 10:50 | Critical Care Progress Note ---
Date of Service January 31, 2019 Assessment & Plan (1) Acute respiratory failure with hypoxia: -- Sepsis with shock Source likely pneumonia Follow-up septic work-up, procalcitonin: 25.62, ESR: 86, CRP: 15.5, urine Legionella, mycoplasma IgM Influenza a and B PCR negative, nasal MRSA negative Continue with O2 supplementation to keep oxygen saturation between 90 to 92% BiPAP nightly and as needed shortness of breath Levophed if need be to Maintain map greater than 65 Continue with broad-spectrum antibiotic along with atypical coverage (doxycycline) given that the patient's QTC is 510 Will DC steroids for the time being. B [employer]GER elevated likely secondary to the fluid that she received while in the hospital. -- HAGMA Improving Deltadelta: Less than 1, metabolic acidosis plus non-anion gap acidosis Likely sec to lactic acidosis as per the labs from the other hospital Urine lites showing positive urine gap, no anion gap is likely from kidney Monitor --Acute kidney injury Follow-up urine lites Monitor BUN/creatinine Avoid nephrotoxic medication Strict in and out --Elevated troponin Likely type II WA EKG shows no ST-T wave changes Monitor --Elevated d-dimer Likely secondary to sepsis VQ scan reviewed personally no VQ mismatch appreciated No swelling of bilateral lower extremity DC heparin drip --Hypothyroidism TSH: 0.183, will order free T4 --Normocytic anemia Monitor H&H --Diabetes mellitus type 2 Insulin sliding scale --Secondary hypercoagulable state Subcu heparin (2) Acute kidney failure: (3) Hypothyroidism: (4) Metabolic acidosis: (5) Sepsis: (6) Fluid overload: (7) Diabetes mellitus type 2 in obese: (8) Hyperlipidemia: (9) Hypertension: Subjective Patient seen and examined at bedside. No acute distress, no adverse events since seeing the patient late night. Feeling better. Shortness of breath is improved. Cough is decreased in intensity. Patient is off vasopressors for the time being. She needed Levophed support for a couple of hours overnight. Denies any abdominal pain, no nausea, no vomiting, no hematuria, no hematochezia. No headache, no chest pain. Review of Systems Review of Systems: All systems reviewed & are unremarkable except as noted in HPI & below Physical Exam Constitutional: not in distress Eyes: PERRL, conjunctivae normal, anicteric sclerae ENMT: external ear and nose normal, oropharynx normal Neck: trachea midline, no thyromegaly normal visual inspection; negative Kernig's sign Respiratory: Auscultation: + crackles Cardiovascular: Heart Sounds: + murmur Vessels: no JVD Extremities: normal capillary refill; no edema Chest (Breasts): normal inspection/palpation of breasts Gastrointestinal (Abdomen): normal bowel sounds, soft, nontender, no hepatosplenomegaly Musculoskeletal: no cyanosis or clubbing, extremities motor strength 5/5 Skin: no rashes, warm and dry Neurologic: PERRL, EOMI, accommodation nl, no face palsy, no dysarthria Psychiatric: A+Ox3, euthymic affect Orientation: alert and oriented x 3 Apperance: appropriately groomed Lymphatic: no cervical or axillary lymphadenopathy Results & Data Vital Signs (Past 12 Hours) Vital Signs Temp Pulse Pulse Resp BP Pulse Ox 01/31/19 09:38 81 17 101/63 98 01/31/19 09:16 70 18 91/67 L 97 01/31/19 09:01 67 18 82/59 L 93 01/31/19 08:47 80 19 107/63 96 01/31/19 08:31 74 19 89/59 L 98 01/31/19 08:17 70 18 84/49 L 97 01/31/19 08:01 36.7 C 73 17 87/59 L 98 01/31/19 07:46 73 21 95/60 L 95 01/31/19 07:31 71 18 97/62 L 99 01/31/19 07:16 67 17 93/62 L 100 01/31/19 07:01 72 19 110/63 96 01/31/19 07:00 90 18 95 01/31/19 06:46 72 18 84/60 L 98 01/31/19 06:16 65 17 105/65 96 01/31/19 06:01 64 18 100/57 L 98 01/31/19 05:46 82 21 107/70 98 01/31/19 05:30 72 18 99 01/31/19 05:16 67 16 107/72 97 01/31/19 05:01 68 20 127/74 97 01/31/19 04:46 68 19 132/78 98 01/31/19 04:32 71 21 129/80 94 01/31/19 04:18 36.6 C 01/31/19 04:16 66 17 129/70 98 01/31/19 04:02 81 21 133/91 97 01/31/19 03:58 80 20 144/76 H 96 01/31/19 03:46 79 19 154/114 H 97 01/31/19 03:31 82 20 130/77 97 01/31/19 03:16 73 16 117/73 95 01/31/19 03:01 72 18 101/71 95 01/31/19 02:46 71 17 105/55 L 95 01/31/19 02:31 67 21 112/70 93 01/31/19 02:16 70 18 125/68 95 01/31/19 02:02 69 19 130/70 97 01/31/19 01:47 81 25 H 79/49 L 96 01/31/19 01:31 68 17 96/55 L 97 01/31/19 01:11 72 21 86/59 L 96 01/31/19 01:06 36.8 C 01/31/19 01:01 68 23 92/62 L 95 01/31/19 00:51 70 17 80/50 L 96 01/31/19 00:32 72 16 81/55 L 97 01/31/19 00:01 76 23 93/63 L 97 01/30/19 23:51 73 28 H 84/56 L 95 01/30/19 23:41 71 19 84/65 L 99 01/30/19 23:31 72 19 97/63 L 99 01/30/19 23:12 82 20 83/58 L 95 01/30/19 23:01 74 18 103/64 95 01/30/19 23:00 73 21 95 01/30/19 22:51 72 21 90/58 L 94 01/30/19 22:50 78 21 94 Laboratory Results Laboratory Tests 01/31/19 04:00 Urine Sodium 45 Urine Potassium 23.2 Urine Chloride 40 01/31/19 03:31 01/31/19 03:31 Intake & Output 01/29/19 01/30/19 01/31/19 02/01/19 06:59 06:59 06:59 06:59 Intake Total 663.087 / 663.087 3.69 / 3.69 Output Total 575 / 575 451 / 451 Balance 88.087 / 88.087 -447.31 / -447.31 Weight 76.6 kg PG Care Time/CCT Total # of Minutes Spent Total Time Spent with Patient: Total time spent is greater than 50% in coordination of care (as documented) at patient's floor/unit and/or counseling patient: Critical Care Time: Yes Total Critical Care Time: 30
--- NOTE | 2019-01-31 12:12 | Ultrasound Report ---
BILATERAL LOWER EXTREMITY VENOUS DOPPLER HISTORY: Bilateral LE swelling. R/o DVT COMPARISON STUDY: None. FINDINGS: There is normal compressibility, flow, and augmentation within the bilateral lower extremit y deep venous systems. A 6.0 x 4.6 x 2.0 cm popliteal cyst. IMPRESSION: No DVT within the right or left lower extremity. Electronically signed by: Wilfredo Hopkins M.D. 01/31/2019 12:10 PM
--- NOTE | 2019-01-31 15:27 | Hospitalist Progress Note ---
Date of Service January 31, 2019 Assessment & Plan (1) Acute respiratory failure with hypoxia: Patient is not on oxygen at home. Steroids stopped by ICU - lifelong smoker but no history of COPD or inhaler use Duo nebs every 4 hours as needed for shortness of breath O2 4L currently maintaining O2 sats (2) Sepsis: Suspected source pneumonia vs. complicated UTI Procalcitonin 25.62 Continue antibiotics for suspected UTI/pneumonia V/Q unremarkable for PE BNP elevated, lactic acid 1.9, blood cultures, urine cultures, respiratory cultures pending Also had blood cultures @ [facility] (3) Community acquired pneumonia: Given history of bronchitis, cough and fever. No large consolidation on CXR however. ICU management with cefepime and doxycycline (4) Complicated UTI (urinary tract infection): No urine culture taken on this occasion @ [facility] but recent prior culture on 01/20 positive for klebsiella pansensitive except cefotaxime as per verbal report, awaiting fax from [facility]. No history or kidney stones Urine culture pending (5) Fluid overload: Pulmonary edema from IV fluids. Suspect due to intrinsic renal JEANIE given unremarkable echocardiogram and BNP only elevated after IV fluids given @ [facility] (BNP unremarkable there). BP low limiting diuretic use. (6) Acute kidney failure: Unclear baseline. Likely secondary to infection, poor oral intake and thiazide use. PVR 15 ml therefore do not suspect obstructive cause however no imaging currently. Serial BMP Hold metformin, thiazide diuretic, losartan (7) Hypertension: Hold all anti-hypertensives Appreciate ICU management with vasopressor support, now on hold (8) Hyperlipidemia: Continue home med rosuvastatin 20 mg nightly (9) Metabolic acidosis: As above. Repeat lactic acid. Treat with antibiotics and underlying cause. (10) Diabetes mellitus type 2 in obese: Glycemic control per pharmacy. Hold metformin and trulicity while patient is in acute kidney failure (11) Hypothyroidism: Continue home dose of Synthroid 88 mcg. (12) Nicotine abuse: Offered nicotine patch. Discussed smoking cessation (13) DVT prophylaxis: Heparin SQ 5000 units Q12H Subjective Revisited history with patient. Started with bronchitis 3-4 weeks ago. Went to PCP and was prescribed antibiotic which she thinks was amoxicillin. Then developed dysuria and back pain while on amoxicillin and went back to PCP about 5 days later, diagnosed with UTI but she is unsure what antibiotic she was given at that time. However she improved and urine culture @ [facility] positive for Klebsiella (over the phone lab reports pansensitive apart from cefotaxime intermediate. She continued to have "bronchitis" during all this time and went back to the PCP last Friday. She was given a steroid, inhaler and a zpak which didn't help. She also reports her dysuria returned on however she didn't return to a healthcare provider for this. She continued to get worse and presented to [facility] on 01/30 in renal and respiratory failure. Transferred here due to concern for needing V/Q scan as concern for PE. She is now off vasopressor support and breathing has much improved. Review of Systems Review of Systems: All systems reviewed & are unremarkable except as noted in HPI & below Physical Exam Constitutional: well developed and + obese; no acute distress Eyes: PERRL, conjunctivae normal, anicteric sclerae ENMT: external ear and nose normal, oropharynx normal Neck: normal visual inspection and trachea midline Respiratory: Auscultation: + crackles and + wheezes Cardiovascular: Heart Sounds: normal S1 and normal S2; no murmur Vessels: no JVD Extremities: normal capillary refill; no edema Chest (Breasts): normal inspection/palpation of breasts Gastrointestinal (Abdomen): normal bowel sounds, soft, nontender, no hepatosplenomegaly mild right sided CVA tenderness Musculoskeletal: no cyanosis or clubbing, extremities motor strength 5/5 Skin: no rashes, warm and dry Neurologic: moves all extremities and awake; no focal motor deficits and not confused Motor/Sensory: no pronator drift Psychiatric: Orientation: alert and oriented x 3 Results & Data Vital Signs (Past 12 Hours) Vital Signs Temp Pulse Pulse Resp BP Pulse Ox 01/31/19 14:31 70 23 103/60 95 01/31/19 14:01 72 18 93/72 L 95 01/31/19 13:31 80 20 100/61 95 01/31/19 13:02 87 16 110/72 94 01/31/19 12:31 75 18 92/59 L 94 01/31/19 12:26 98.4 F 74 17 93/54 L 96 01/31/19 12:01 76 21 96/53 L 94 01/31/19 11:31 71 15 97/51 L 94 01/31/19 11:01 67 28 H 107/62 100 01/31/19 10:53 74 16 96 01/31/19 10:31 63 17 88/62 L 98 01/31/19 10:01 67 15 91/59 L 97 01/31/19 09:38 81 17 101/63 98 01/31/19 09:16 70 18 91/67 L 97 01/31/19 09:01 67 18 82/59 L 93 01/31/19 08:47 80 19 107/63 96 01/31/19 08:31 74 19 89/59 L 98 01/31/19 08:17 70 18 84/49 L 97 01/31/19 08:01 98.1 F 73 17 87/59 L 98 01/31/19 07:46 73 21 95/60 L 95 01/31/19 07:31 71 18 97/62 L 99 01/31/19 07:16 67 17 93/62 L 100 01/31/19 07:01 72 19 110/63 96 01/31/19 07:00 90 18 95 01/31/19 06:46 72 18 84/60 L 98 01/31/19 06:16 65 17 105/65 96 01/31/19 06:01 64 18 100/57 L 98 01/31/19 05:46 82 21 107/70 98 01/31/19 05:30 72 18 99 01/31/19 05:16 67 16 107/72 97 01/31/19 05:01 68 20 127/74 97 01/31/19 04:46 68 19 132/78 98 01/31/19 04:32 71 21 129/80 94 01/31/19 04:18 97.9 F 01/31/19 04:16 66 17 129/70 98 01/31/19 04:02 81 21 133/91 97 01/31/19 03:58 80 20 144/76 H 96 01/31/19 03:46 79 19 154/114 H 97 01/31/19 03:31 82 20 130/77 97 PG Care Time/CCT Total # of Minutes Spent Total Time Spent with Patient: Total time spent is greater than 50% in coordination of care (as documented) at patient's floor/unit and/or counseling patient:
[2019-01-31] MEDS: ROSUVASTATIN CALCIUM 20 MG TAB PO SCH (20:46)
[2019-01-31] MEDS: TRAZODONE HCL 50 MG TAB PO PRN (20:49)
[2019-02-01] MEDS: INSULIN ASPART 100 UNITS/ML 3 ML PEN SC SCH ×5 (04:00→20:23)
[2019-02-01 04:55] LABS: Basophils # (auto) 0.03 K/uL (0-0.2); Basophils % (auto) 0.2 %; Eosinophils # (auto) 1.84 K/uL (0-0.5); Eosinophils % (auto) 11.4 %; Hemoglobin 8.4 g/dL (12.0-16.0); Immature Granulocytes # (auto) 0.13 K/uL (0.00-0.02); Immature Granulocytes % (auto) 0.8 %; Lymphocytes # (auto) 2.68 K/uL (1.2-3.4); Lymphocytes % (auto) 16.6 %; Mean Corpuscular Hemoglobin 27.9 pg (25-34); Mean Corpuscular Hgb Conc 33.6 g/dL (32-36); Mean Corpuscular Volume 83.1 fL (80-100); Monocytes # (auto) 0.78 K/uL (0.11-0.59); Monocytes % (auto) 4.8 %; Neutrophils % (auto) 66.2 %; Platelet Count 201 K/uL (130-400); RDW Coefficient of Variation 14.7 % (11.5-14.5); RDW Standard Deviation 44.7 fL (36.4-46.3); Red Blood Count 3.01 M/uL (4.2-5.4); White Blood Count 16.16 K/uL (4.8-10.8)
[2019-02-01 05:04] LABS: INR 1.2 (0.9-1.1); Prothrombin Time 11.8 Seconds (9.0-12.0)
[2019-02-01 05:31] LABS: Albumin Globulin Ratio 0.6 (0.9-2); Albumin Level 2.6 gm/dl (3.4-5.0); BUN Creatinine Ratio 24.4 (10-20); Bilirubin,Total 0.4 mg/dl (0.2-1); Calcium 8.3 mg/dl (8.5-10.1); Creatinine Clr Calc Pharmacy 21.4 ml/min; Est GFR (African American) 25.5; Globulin 4.4 gm/dl (2.5-4.0); Magnesium 2.2 mg/dl (1.8-2.4); Phosphorus 3.7 mg/dl (2.5-4.9); Potassium 3.2 mmol/L (3.5-5.1); Troponin I 0.064 ng/ml (0-0.045)
[2019-02-01] MEDS: POTASSIUM CHLORIDE / WTR 20 MEQ/100 ML PLCT IV SCH ×2 (06:29→08:07)
[2019-02-01] MEDS: LEVOTHYROXINE SODIUM 88 MCG TABLET PO SCH (06:29)
[2019-02-01 06:35] LABS: Estimated Average Glucose 169 mg/dl; Hemoglobin A1C 7.5 % (4.5-5.6)
[2019-02-01] MEDS: ACETYLCYSTEINE 10% INHAL SOLN **DISPENSED FROM RESP. INH SCH (07:01)
[2019-02-01] MEDS: ALBUT/IPRATROP 3MG/0.5MG NEB 3 ML VIAL NEB SCH (07:01)
--- NOTE | 2019-02-01 07:01 | XRay Report ---
XR chest 1V portable CLINICAL HISTORY: Shortness of breath. Follow-up examination. COMPARISON STUDY: 01/30/2019 FINDINGS: The heart remains enlarged. There is improving congestive failure. There is no change in po sition of the right internal jugular central venous catheter. There are small bilateral pleural effus ions.[ IMPRESSION: Improving congestive failure with mild interstitial edema. Small bilateral pleural effusi ons. Electronically signed by: Ravi Lake M.D. 02/01/2019 6:59 AM
--- NOTE | 2019-02-01 07:54 | Critical Care Progress Note ---
Date of Service February 01, 2019 Assessment & Plan (1) Admitted to intensive care unit: Reason Critically Ill: acute resp failure with hypoxia NEURO ICU CAM: NEGATIVE CV Elevated trop- has peaked and downtrending. Likely 2/2 type II IA No sig changes seen on EKG HTN- holding home meds 2/2 low BPs. No pressor needs at present HLD- cont rosuvastatin 20 mg qhs CHF- Elevated BNP likely 2/2 IVF received here. ECHO- mild concentric LVH, EF 60-65%, Grade I diastolic dysfxn PULM Elevated d dimer- likely 2/2 sepsis VQ scan reviewed by pressurizer and no VQ appreciated Heparin gtt dc'd Cont cefepime for pseudomonas. Follow up blood and resp cx Cont doxy for atypical coverage (High QTc) Duonebs q4h prn for SOB Symbicort 2 puffs bid Resp cx pending BiPAP prn qhs Supportive tx and supplemental O2 if hypoxic GI No acute concerns /RENAL JEANIE- improving. Cont trend BMP Avoid nephrotoxic meds Strict I/O's HAGMA- closed Likely 2/2 lactic acidosis per OSH records ID Sepsis with shock- resolved. Likely PNA source Septic work up: procal 25, ESR 86, CRP 15, urine Legionella and mycoplasma IgM pending Influenza A and B PCR neg Nasal MRSA neg ENDO DM2- ISS Hypothyroidism- TSH 0.183. Free T4 WNL. Cont home synthroid 88 mcg HEME Monitor H/H. Normocytic Anemia LINES: PIVx2, R IJ removed DVT Prophylaxis: Heparin FULL CODE DISPO: Stable for downgrade out of ICU Supervising Physician Co-Signing Physician Notes Dr. Mayer was resident physician during care of patient. I separately evaluated patient for christopher portions of the history and the exam. I was present during the critical portion of medical decision making, and I discussed the case with the resident. I generally agree with the findings and plan. Patient has not required vasoactive medication, significant decrease in oxygen requirement not requiring BiPAP. She has been the escalated to cefepime and doxycycline. Sputum specimen has been sent, hopefully this will allow us to de- escalate otherwise it would consider this infection to be community-acquired pneumonia and consider de-escalation to Rocephin versus single agent doxycycline. Patient stable for downgrade out of ICU, no history of cardiac dysrhythmia would be appropriate for regular nursing floor. Subjective 68 yo F found in bed this AM in NAD. No reported overnight events. Pt states breathing much improved, sating well on RA. TOlerating PO intake. No other acute concerns or complaints. Review of Systems Review of Systems: All systems reviewed & are unremarkable except as noted in HPI & below Physical Exam Constitutional: WD/WN, vitals as above Eyes: PERRL, conjunctivae normal, anicteric sclerae ENMT: external ear and nose normal, oropharynx normal Respiratory: normal respiratory effort; no labored breathing Auscultation: + crackles Cardiovascular: Rate/Rhythm: regular rate and regular rhythm Heart Sounds: + murmur Gastrointestinal (Abdomen): normal bowel sounds, soft, nontender, no hepatosplenomegaly Skin: no rashes, warm and dry Psychiatric: A+Ox3, euthymic affect Results & Data Vital Signs (Past 12 Hours) Vital Signs Pulse Resp BP Pulse Ox 02/01/19 07:02 71 16 97 02/01/19 06:00 72 16 84/44 L 97 02/01/19 05:00 66 18 98/58 L 97 02/01/19 04:00 67 19 87/51 L 98 02/01/19 03:00 68 16 92/57 L 98 02/01/19 02:00 74 22 108/70 95 02/01/19 01:00 68 16 87/60 L 97 02/01/19 00:00 70 17 87/60 L 99 01/31/19 23:00 73 17 100/53 L 98 01/31/19 22:00 84 17 84/50 L 95 01/31/19 20:00 81 18 103/57 L 98 Laboratory Results Laboratory Results - last 24 hr 01/30/19 01/30/19 01/31/19 23:03 23:03 11:32 WBC RBC Hgb Hct MCV MCH MCHC RDW Std Deviation RDW Coeff of Brody Plt Count MPV Immature Gran % (Auto) Neut % (Auto) Lymph % (Auto) [place] % (Auto) Eos % (Auto) Baso % (Auto) Immature Gran # (Auto) Neut # (Auto) Lymph # (Auto) [place] # (Auto) Eos # (Auto) Baso # (Auto) PT INR Sodium 137 Potassium 3.3 L Chloride 106 Carbon Dioxide 15 L Anion Gap 16.0 H BUN 51 H Creatinine 3.07 H Est Cr Clr Drug Dosing 15.0 Est GFR ( Amer) 17.5 Est GFR (Non-Af Amer) 15.1 BUN/Creatinine Ratio 16.7 Glucose 226 H POC Glucose Estimat Average Glucose 169 Hemoglobin A1c 7.5 H Calcium 7.6 L Phosphorus 2.9 Magnesium 1.9 Total Bilirubin 0.5 AST 21 ALT 32 Alkaline Phosphatase 140 H Troponin I 0.053 H* C-Reactive Protein 15.50 H NT-Pro-B Natriuret Pep 4903 H Total Protein 7.0 Albumin 2.6 L Globulin 4.4 H Albumin/Globulin Ratio 0.6 L Procalcitonin TSH 0.183 L Free T4 0.98 01/31/19 01/31/19 01/31/19 12:01 12:58 16:26 WBC RBC Hgb Hct MCV MCH MCHC RDW Std Deviation RDW Coeff of Brody Plt Count MPV Immature Gran % (Auto) Neut % (Auto) Lymph % (Auto) [place] % (Auto) Eos % (Auto) Baso % (Auto) Immature Gran # (Auto) Neut # (Auto) Lymph # (Auto) [place] # (Auto) Eos # (Auto) Baso # (Auto) PT INR Sodium Potassium Chloride Carbon Dioxide Anion Gap BUN Creatinine Est Cr Clr Drug Dosing Est GFR ( Amer) Est GFR (Non-Af Amer) BUN/Creatinine Ratio Glucose POC Glucose 136 H 133 H 162 H Estimat Average Glucose Hemoglobin A1c Calcium Phosphorus Magnesium Total Bilirubin AST ALT Alkaline Phosphatase Troponin I C-Reactive Protein NT-Pro-B Natriuret Pep Total Protein Albumin Globulin Albumin/Globulin Ratio Procalcitonin TSH Free T4 01/31/19 01/31/19 02/01/19 20:40 23:10 04:28 WBC 16.16 H RBC 3.01 L Hgb 8.4 L Hct 25.0 L MCV 83.1 MCH 27.9 MCHC 33.6 RDW Std Deviation 44.7 RDW Coeff of Brody 14.7 H Plt Count 201 MPV 10.0 Immature Gran % (Auto) 0.8 Neut % (Auto) 66.2 Lymph % (Auto) 16.6 [place] % (Auto) 4.8 Eos % (Auto) 11.4 Baso % (Auto) 0.2 Immature Gran # (Auto) 0.13 H Neut # (Auto) 10.70 H Lymph # (Auto) 2.68 [place] # (Auto) 0.78 H Eos # (Auto) 1.84 H Baso # (Auto) 0.03 PT INR Sodium Potassium Chloride Carbon Dioxide Anion Gap BUN Creatinine Est Cr Clr Drug Dosing Est GFR ( Amer) Est GFR (Non-Af Amer) BUN/Creatinine Ratio Glucose POC Glucose 148 H 147 H Estimat Average Glucose Hemoglobin A1c Calcium Phosphorus Magnesium Total Bilirubin AST ALT Alkaline Phosphatase Troponin I C-Reactive Protein NT-Pro-B Natriuret Pep Total Protein Albumin Globulin Albumin/Globulin Ratio Procalcitonin TSH Free T4 02/01/19 02/01/19 02/01/19 04:28 04:28 04:28 WBC RBC Hgb Hct MCV MCH MCHC RDW Std Deviation RDW Coeff of Brody Plt Count MPV Immature Gran % (Auto) Neut % (Auto) Lymph % (Auto) [place] % (Auto) Eos % (Auto) Baso % (Auto) Immature Gran # (Auto) Neut # (Auto) Lymph # (Auto) [place] # (Auto) Eos # (Auto) Baso # (Auto) PT 11.8 INR 1.2 H Sodium 140 Potassium 3.2 L D Chloride 108 H Carbon Dioxide 23 Anion Gap 9.0 BUN 55 H Creatinine 2.25 H D Est Cr Clr Drug Dosing 21.4 Est GFR ( Amer) 25.5 Est GFR (Non-Af Amer) 22.0 BUN/Creatinine Ratio 24.4 H Glucose 121 H POC Glucose Estimat Average Glucose Hemoglobin A1c Calcium 8.3 L Phosphorus 3.7 Magnesium 2.2 Total Bilirubin 0.4 AST 8 L ALT 29 Alkaline Phosphatase 111 Troponin I 0.064 H* C-Reactive Protein NT-Pro-B Natriuret Pep Total Protein 7.0 Albumin 2.6 L Globulin 4.4 H Albumin/Globulin Ratio 0.6 L Procalcitonin 11.99 H TSH Free T4 02/01/19 07:32 WBC RBC Hgb Hct MCV MCH MCHC RDW Std Deviation RDW Coeff of Brody Plt Count MPV Immature Gran % (Auto) Neut % (Auto) Lymph % (Auto) [place] % (Auto) Eos % (Auto) Baso % (Auto) Immature Gran # (Auto) Neut # (Auto) Lymph # (Auto) [place] # (Auto) Eos # (Auto) Baso # (Auto) PT INR Sodium Potassium Chloride Carbon Dioxide Anion Gap BUN Creatinine Est Cr Clr Drug Dosing Est GFR ( Amer) Est GFR (Non-Af Amer) BUN/Creatinine Ratio Glucose POC Glucose 130 H Estimat Average Glucose Hemoglobin A1c Calcium Phosphorus Magnesium Total Bilirubin AST ALT Alkaline Phosphatase Troponin I C-Reactive Protein NT-Pro-B Natriuret Pep Total Protein Albumin Globulin Albumin/Globulin Ratio Procalcitonin TSH Free T4 Medications Administered Current Inpatient Medications Acetaminophen (Tylenol) 650 mg PO Q4H PRN PRN Reason: Pain or Fever Stop: 03/01/19 18:24 Al Hydrox/Mg Hydrox/Simethicone (Maalox) 15 ml PO Q4H PRN PRN Reason: Dyspepsia Stop: 03/01/19 18:24 Albuterol (Duoneb) 3 ml NEB QIDR PRN PRN Reason: shortness of breath Stop: 03/02/19 06:59 Budesonide/Formoterol Fumarate (Symbicort 160mcg/4.5mcg) 2 puffs INH BID ROMEO Stop: 03/01/19 22:29 Last Admin: 02/01/19 08:48 Dose: 2 puffs Documented by: Dextrose (Dextrose 50%) 25 - 50 ml IV UD PRN; Protocol PRN Reason: Hypoglycemia Protocol Stop: 03/01/19 23:29 Doxycycline Hyclate (Vibramycin) 100 mg PO BID ROMEO Stop: 02/02/19 00:59 Last Admin: 02/01/19 08:48 Dose: 100 mg Documented by: Glucagon (Glucagen) 1 mg IM UD PRN; Protocol PRN Reason: Hypoglycemia Protocol Stop: 03/01/19 23:29 Glucose (Glucose 40%) 15 - 30 gm PO UD PRN; Protocol PRN Reason: Hypoglycemia Protocol Stop: 03/01/19 23:29 Glucose (Dex4 Glucose) 4 - 8 tabs PO UD PRN; Protocol PRN Reason: Hypoglycemia Protocol Stop: 03/01/19 23:29 Guaifenesin/Dextromethorphan (Robitussin Cough-Chest Dm) 10 ml PO Q6H PRN PRN Reason: Cough Stop: 03/01/19 23:10 Last Admin: 01/31/19 00:19 Dose: 10 ml Documented by: Heparin Sodium (Beef Lung) (Heparin Sod 10 Unit/Ml Flush) 5 ml FLUSH PRN PRN PRN Reason: Flush Stop: 03/03/19 00:03 Heparin Sodium (Porcine) (Heparin Sodium (Porcine)) 5,000 units SQ Q12 [facility]O Stop: 03/02/19 08:59 Last Admin: 02/01/19 08:09 Dose: 5,000 units Documented by: Cefepime HCl 2,000 mg/ Syringe 20 mls @ 5.5 mls/min IV Q24H [facility]; Protocol Stop: 02/06/19 21:59 Last Admin: 01/31/19 23:11 Dose: 5.5 mls/min Documented by: Insulin Aspart (Novolog Flexpen) 0 units SC ACHS [facility] Stop: 03/02/19 16:29 Last Admin: 02/01/19 08:09 Dose: 4 units Documented by: Levothyroxine Sodium (Synthroid) 88 mcg PO DAILYBB [facility] Stop: 03/02/19 06:29 Last Admin: 02/01/19 06:29 Dose: 88 mcg Documented by: Magnesium Hydroxide (Milk Of Magnesia) 30 ml PO Q12H PRN PRN Reason: Constipation Stop: 03/01/19 18:24 Miscellaneous (Remove Nicoderm Patch) 1 ea N/A HS [facility] Stop: 03/01/19 20:59 Last Admin: 01/31/19 20:49 Dose: 1 ea Documented by: Miscellaneous (Carbohydrates For Hypoglycemia) 15 - 30 gm PO UD PRN PRN Reason: Hypoglycemia Treatment Stop: 03/01/19 23:29 Miscellaneous Information (Consult Glycemic Management Pharmacy) 1 ea N/A UD PRN PRN Reason: Consult Stop: 03/01/19 21:46 Nicotine (Nicoderm Cq) 14 mg TD QAM [facility] Stop: 03/02/19 08:59 Last Admin: 02/01/19 08:48 Dose: Not Given Documented by: Polyethylene Glycol (Miralax Powder Packet) 17 gm PO DAILY PRN PRN Reason: Constipation Stop: 03/01/19 18:24 Rosuvastatin Calcium (Crestor) 20 mg PO HS [facility] Stop: 03/02/19 20:59 Last Admin: 01/31/19 20:46 Dose: 20 mg Documented by: Sertraline HCl (Zoloft) 100 mg PO DAILY [facility] Stop: 03/03/19 10:59 Sodium Chloride (Sodium Chlor 7% Neb Solution) 4 ml INH BIDR PRN PRN Reason: cough Stop: 03/02/19 06:59 Trazodone HCl (Desyrel) 25 mg PO HS PRN PRN Reason: Sleep Stop: 03/02/19 20:00 Last Admin: 01/31/19 20:49 Dose: 25 mg Documented by: PG Care Time/CCT Total # of Minutes Spent Total Time Spent with Patient: Total time spent is greater than 50% in coordination of care (as documented) at patient's floor/unit and/or counseling patient: Resident Activity Tracking Resident Involvement: Resident Care Provided Care Provided: Adult Hospital Medicine
[2019-02-01] MEDS: HEPARIN SOD 5,000 UNIT/0.5 ML VIAL SQ SCH ×2 (08:09→20:22)
[2019-02-01] MEDS: BUDESONIDE/FORMOTEROL FUMARATE 160/4.5 60 PUFFS/INHALER INH SCH ×2 (08:48→20:21)
[2019-02-01] MEDS: DOXYCYCLINE HYCLATE 100 MG CAP PO SCH ×2 (08:48→20:22)
[2019-02-01] MEDS: NICOTINE 14 MG/24 HR PATCH TD SCH (08:48)
[2019-02-01] MEDS ORDERED: SERTRALINE HCL 100 MG TABLET PO SCH (11:00)
--- NOTE | 2019-02-01 11:42 | Hospitalist Progress Note ---
Date of Service February 01, 2019 Assessment & Plan (1) Acute respiratory failure with hypoxia: Patient is not on oxygen at home. Steroids stopped by ICU - lifelong smoker but no history of COPD or inhaler use Duo nebs every 4 hours as needed for shortness of breath O2 4L currently maintaining O2 sats (2) Sepsis: Suspected source pneumonia vs. complicated UTI Procalcitonin 25.62 Continue antibiotics for suspected UTI/pneumonia V/Q unremarkable for PE BNP elevated, lactic acid 1.9, blood cultures, urine cultures, respiratory cultures pending Also had blood cultures @ [facility] (3) Community acquired pneumonia: Given history of bronchitis, cough and fever. No large consolidation on CXR however. ICU management with cefepime and doxycycline (4) Complicated UTI (urinary tract infection): No urine culture taken on this occasion @ [facility] but recent prior culture on 01/20 positive for klebsiella pansensitive except cefotaxime as per verbal report, awaiting fax from [facility]. No history or kidney stones Urine culture pending (5) Fluid overload: Pulmonary edema from IV fluids. Suspect due to intrinsic renal JEANIE given unremarkable echocardiogram and BNP only elevated after IV fluids given @ [facility] (BNP unremarkable there). BP low limiting diuretic use. (6) Acute kidney failure: Unclear baseline. Likely secondary to infection, poor oral intake and thiazide use. PVR 15 ml therefore do not suspect obstructive cause however no imaging currently. Serial BMP Hold metformin, thiazide diuretic, losartan (7) Hypertension: Hold all anti-hypertensives Appreciate ICU management with vasopressor support, now on hold (8) Hyperlipidemia: Continue home med rosuvastatin 20 mg nightly (9) Metabolic acidosis: As above. Repeat lactic acid. Treat with antibiotics and underlying cause. (10) Diabetes mellitus type 2 in obese: Glycemic control per pharmacy. Hold metformin and trulicity while patient is in acute kidney failure (11) Hypothyroidism: Continue home dose of Synthroid 88 mcg. (12) Nicotine abuse: Offered nicotine patch. Discussed smoking cessation (13) DVT prophylaxis: Heparin SQ 5000 units Q12H Results & Data Vital Signs (Past 12 Hours) Vital Signs Temp Pulse Pulse Resp BP Pulse Ox 02/01/19 11:00 76 18 97/61 L 97 02/01/19 10:00 79 16 97/60 L 97 02/01/19 08:00 65 02/01/19 07:02 71 16 97 02/01/19 07:00 36.8 C 81 26 H 94/51 L 97 02/01/19 06:00 72 16 84/44 L 97 02/01/19 05:00 66 18 98/58 L 97 02/01/19 04:00 67 19 87/51 L 98 02/01/19 03:00 68 16 92/57 L 98 02/01/19 02:00 74 22 108/70 95 02/01/19 01:00 68 16 87/60 L 97 02/01/19 00:00 70 17 87/60 L 99 PG Care Time/CCT Total # of Minutes Spent Total Time Spent with Patient: Total time spent is greater than 50% in coordination of care (as documented) at patient's floor/unit and/or counseling patient:
--- NOTE | 2019-02-01 11:50 | Hospitalist Progress Note ---
Date of Service February 01, 2019 Assessment & Plan (1) Acute respiratory failure with hypoxia: Patient is not on oxygen at home. Resolved. She has been weaned off oxygen. Stable from a respiratory standpoint. (2) Sepsis: Suspected source pneumonia vs. complicated UTI Procalcitonin 25.62 Continue antibiotics for suspected UTI/pneumonia V/Q unremarkable for PE BNP elevated, lactic acid 1.9, blood cultures, urine cultures, respiratory cultures pending Also had blood cultures @ [facility] She has been weaned off pressor support and is now stable (3) Community acquired pneumonia: Given history of bronchitis, cough and fever. No large consolidation on CXR however. ICU management with cefepime and doxycycline. Continue current antibiotic management (4) Complicated UTI (urinary tract infection): No urine culture taken on this occasion @ [facility] but recent prior culture on 01/20 positive for klebsiella pansensitive except cefotaxime as per verbal report, awaiting fax from [facility]. No history or kidney stones Urine culture reveals Klebsiella. Continue cefepime therapy. (5) Fluid overload: Pulmonary edema from IV fluids. Suspect due to intrinsic renal JEANIE given unremarkable echocardiogram and BNP only elevated after IV fluids given @ [facility] (BNP unremarkable there). Resolved (6) Acute kidney failure: Improving. Creatinine down to 2.2. Will follow daily. Serial BMP Hold metformin, thiazide diuretic, losartan (7) Hypertension: Hypotensive on admission. Usual antihypertensive have been placed on hold. Improved. She has been weaned off norepinephrine. (8) Hyperlipidemia: Continue home med rosuvastatin 20 mg nightly (9) Metabolic acidosis: Due to sepsis. Treat with antibiotics and underlying cause. (10) Diabetes mellitus type 2 in obese: Glycemic control per pharmacy. Hold metformin and trulicity while patient is in acute kidney failure (11) Hypothyroidism: Continue home dose of Synthroid 88 mcg. (12) Nicotine abuse: Offered nicotine patch. Discussed smoking cessation (13) DVT prophylaxis: Heparin SQ 5000 units Q12H Subjective The patient is alert and oriented. No acute distress. is at the bedside. She is off pressor support and hemodynamically stable. Creatinine down to 2.2. She will will be transferred to the medical floor with telemetry today. Review of Systems Review of Systems: Constitutional-no fever or chills ENT-no blurred vision, no double vision, no epistaxis, no sore throat Respiratory-no cough, no wheezing, no shortness of breath Cardiac-no palpitations, no chest pain, no syncope GI-no nausea, vomiting, diarrhea, melena, hematochezia -no urinary retention, no urinary incontinence, no dysuria, no hematuria Musculoskeletal-no joint pain, no muscle tenderness Skin-no bruising, no rashes, no pruritus Neuro-no isolated weakness, no paresthesia, no weakness Psych-no depression, no anxiety Physical Exam Physical Exam: General-alert and oriented x3, no fevers, no chills HEENT-head atraumatic and normocephalic, TMs intact bilaterally, pupils equal and reactive to light, extraocular muscles intact Neck-no lymphadenopathy or thyromegaly, trachea midline Chest-clear to auscultation percussion. No rales wheezing or rhonchi Cardiac-regular rate and rhythm, normal S1 and S2, no murmurs Abdomen-normal bowel sounds, nontender, no hepatosplenomegaly Extremities-no cyanosis, clubbing, or edema Neuro-cranial nerves II through XII intact, motor and sensory function within normal limits, strength symmetrical 5/5, no focal deficits Psych-normal affect, normal mood Results & Data Vital Signs (Past 12 Hours) Vital Signs Temp Pulse Pulse Resp BP Pulse Ox 02/01/19 11:00 76 18 97/61 L 97 02/01/19 10:00 79 16 97/60 L 97 02/01/19 08:00 65 02/01/19 07:02 71 16 97 02/01/19 07:00 36.8 C 81 26 H 94/51 L 97 02/01/19 06:00 72 16 84/44 L 97 02/01/19 05:00 66 18 98/58 L 97 02/01/19 04:00 67 19 87/51 L 98 02/01/19 03:00 68 16 92/57 L 98 02/01/19 02:00 74 22 108/70 95 02/01/19 01:00 68 16 87/60 L 97 02/01/19 00:00 70 17 87/60 L 99 Laboratory Results 02/01/19 04:28 02/01/19 04:28 PG Care Time/CCT Total # of Minutes Spent Total Time Spent with Patient: Total time spent is greater than 50% in coordination of care (as documented) at patient's floor/unit and/or counseling patient:
[2019-02-01] MEDS: SERTRALINE HCL 100 MG TABLET PO SCH (11:56)
[2019-02-01] MEDS ORDERED: GUAIFENESIN/CODEINE 100MG/10MG 5ML UDC PO PRN (13:00)
[2019-02-01] MEDS ORDERED: ALBUTEROL HFA 8 GM INHALER INH PRN (13:00)
--- NOTE | 2019-02-01 13:43 | Pharmacy Report ---
Pharmacy Glycemic Short Note 2 - Date of Service February 01, 2019 - Glycemic Short BSG Results (Last 24 hours): 01/30/19 01/31/19 01/31/19 23:03 16:26 20:40 Glucose 226 H POC Glucose 162 H 148 H 01/31/19 02/01/19 02/01/19 23:10 04:28 07:32 Glucose 121 H POC Glucose 147 H 130 H 02/01/19 11:51 Glucose POC Glucose 190 H OUTPATIENT ANTIDIABETIC REGIMEN: * Metformin ER 500mg BID * Trulicity 0.75mg SQ weekly * A1c = 7.5% ASSESSMENT: * Type 2 diabetic admitted with sepsis, pneumonia * Fasting BSG 130 this AM with 30 units Lantus on board. Will give a lesser dose of Lantus this PM as pt had received steroids yesterday. Tonight's dose will be based upon weight and moderate stress level * Novolog CF and CR are reasonable starting points and have performed well thus far. May need to lessen doses as stressors decline PLAN FOR INPATIENT GLYCEMIC CONTROL: * Hold outpatient oral diabetes medications * Basal insulin * Lantus Q HS * 20units if BSG less than 180 * 25 units if BSG 180 or greater * Bolus insulin * NovoLog per scale ACHS or Q6hrs while NPO * Goal Range: Low 110 mg/dL - High 170 mg/dL * Correction Factor: 20 mg/dL/unit * Nutritional / Prandial insulin per carb ratio of 1 unit per 7 grams CHO consumed PLAN FOR DISCHARGE: * Patient has A1c 7.5%, not far from goal. There is room to up titrate the metformin on discharge - however this cannot be done in the setting of JEANIE. The appropriateness of metformin on discharge is dependent on renal fxn at that time. There is also room to up titrate the Trulicity dose if A1c target not met.
[2019-02-01] MEDS: ROSUVASTATIN CALCIUM 20 MG TAB PO SCH (20:22)
[2019-02-01] MEDS: INSULIN GLARGINE SOLOSTAR 100 UNITS/ML 3 ML PEN SC SCH (20:23)
[2019-02-01] MEDS ORDERED: INSULIN GLARGINE SOLOSTAR 100 UNITS/ML 3 ML PEN SC SCH (21:00)
[2019-02-01] MEDS: TRAZODONE HCL 50 MG TAB PO PRN (21:28)
[2019-02-01] MEDS: CEFEPIME 2,000 MG in SYRINGE 7.5 ML IV SCH (22:36)
[2019-02-02] MEDS: LEVOTHYROXINE SODIUM 88 MCG TABLET PO SCH (05:38)
[2019-02-02 07:20] LABS: Mean Corpuscular Hgb Conc 33.7 g/dL (32-36); Mean Platelet Volume 9.2 fL (7.4-10.4); Nucleated RBC # (auto) 0.03 K/uL (0-0); Nucleated RBC % (auto) 0.2 %; Platelet Count 199 K/uL (130-400)
[2019-02-02 07:50] LABS: Albumin Level 2.7 gm/dl (3.4-5.0); BUN Creatinine Ratio 27.4 (10-20); Calcium 8.8 mg/dl (8.5-10.1); Est GFR (African American) 39.1; Est GFR (Non-African American) 33.7; Potassium 3.5 mmol/L (3.5-5.1)
[2019-02-02 07:51] LABS: Hematocrit (blood only) 24.9 % (37-47); Hemoglobin 8.4 g/dL (12.0-16.0); Mean Corpuscular Hemoglobin 27.6 pg (25-34); Mean Corpuscular Volume 81.9 fL (80-100); RDW Coefficient of Variation 14.6 % (11.5-14.5); RDW Standard Deviation 43.8 fL (36.4-46.3); Red Blood Count 3.04 M/uL (4.2-5.4); White Blood Count 15.08 K/uL (4.8-10.8)
[2019-02-02 07:52] LABS: ALC (manual) 3.97 K/uL (1.2-3.4); ANC (manual) 8.87 K/uL (1.4-6.5); Basophils # (manual) 0.14 K/uL (0-0.2); Basophils % (manual) 0.9 %; Eosinophils # (manual) 1.33 K/uL (0-0.5); Eosinophils % (manual) 8.8 %; Lymphocytes # (manual) 3.97 K/uL (1.2-3.4); Lymphocytes % (manual) 26.3 %; Metamyelocytes # (manual) 0.39 K/uL (0-0); Metamyelocytes % (manual) 2.6 %; Monocytes # (manual) 0.39 K/uL (0.11-0.59); Monocytes % (manual) 2.6 %; Neutrophils # (manual) 8.87 K/uL (1.4-6.5); Neutrophils % (manual) 58.8 %; RBC Morphology Unremarkable
[2019-02-02 07:53] LABS: Albumin Globulin Ratio 0.6 (0.9-2); Bilirubin,Total 0.3 mg/dl (0.2-1); Globulin 4.4 gm/dl (2.5-4.0); Total Protein 7.1 gm/dl (6.4-8.2)
[2019-02-02] MEDS: BUDESONIDE/FORMOTEROL FUMARATE 160/4.5 60 PUFFS/INHALER INH SCH ×2 (08:26→20:46)
[2019-02-02] MEDS: NICOTINE 14 MG/24 HR PATCH TD SCH (08:26)
[2019-02-02] MEDS: PANTOprazole 40 MG TAB PO SCH (08:26)
[2019-02-02] MEDS: INSULIN ASPART 100 UNITS/ML 3 ML PEN SC SCH ×4 (08:27→20:47)
[2019-02-02] MEDS ORDERED: LEVOTHYROXINE SODIUM 88 MCG TABLET PO SCH (09:00)
[2019-02-02] MEDS ORDERED: SERTRALINE HCL 100 MG TABLET PO SCH (09:00)
[2019-02-02] MEDS: SERTRALINE HCL 100 MG TABLET PO SCH (09:10)
[2019-02-02] MEDS: HEPARIN SOD 5,000 UNIT/0.5 ML VIAL SQ SCH ×2 (09:10→20:45)
--- NOTE | 2019-02-02 12:16 | Hospitalist Progress Note ---
Date of Service February 02, 2019 Assessment & Plan (1) Acute respiratory failure with hypoxia: Resolved. She has been weaned off oxygen. Stable from a respiratory standpoint. (2) Sepsis: Suspected source pneumonia vs. complicated UTI Procalcitonin 25.62 on admission Continue antibiotics for suspected UTI/pneumonia V/Q unremarkable for PE She has been weaned off pressor support and is now stable (3) Community acquired pneumonia: Given history of bronchitis, cough and fever. No large consolidation on CXR however. Currently on cefepime and doxycycline. Continue current antibiotic management (4) Complicated UTI (urinary tract infection): Urine culture from [facility] growing Klebsiella. Sensitive to cefepime. (5) Fluid overload: Pulmonary edema from IV fluids. Suspect due to intrinsic renal JEANIE given unremarkable echocardiogram and BNP only elevated after IV fluids given @ [facility] (BNP unremarkable there). Resolved (6) Acute kidney failure: Improving. Creatinine down to 1.5 today.. Will follow daily. Serial BMP Hold metformin, thiazide diuretic, losartan. Hopefully will restart at discharge (7) Hypertension: Hypotensive on admission. Usual antihypertensive have been placed on hold. Now improved. She transiently needed norepinephrine while in the ICU. (8) Hyperlipidemia: Continue home med rosuvastatin 20 mg nightly (9) Metabolic acidosis: Due to sepsis. Treat with antibiotics and underlying cause. Resolved (10) Diabetes mellitus type 2 in obese: Glycemic control per pharmacy. Hold metformin and trulicity while patient is in acute kidney failure (11) Hypothyroidism: Continue home dose of Synthroid 88 mcg. (12) Nicotine abuse: Offered nicotine patch. Discussed smoking cessation (13) DVT prophylaxis: Heparin SQ 5000 units Q12H Dispositionhopefully home tomorrow on oral antibiotic Subjective Alert and oriented. Regaining strength. OT and PT ordered. Creatinine is down to 1.5. Potassium 3.5. If she continues to improve, she will be discharged back to home tomorrow on oral antibiotics. The urine culture obtained from [facility] reveals Klebsiella that is sensitive to cefepime. If creatinine continues to improve, metformin and losartan can be restarted at discharge. Review of Systems Review of Systems: Constitutional-no fever or chills ENT-no blurred vision, no double vision, no epistaxis, no sore throat Respiratory-no cough, no wheezing, no shortness of breath Cardiac-no palpitations, no chest pain, no syncope GI-no nausea, vomiting, diarrhea, melena, hematochezia -no urinary retention, no urinary incontinence, no dysuria, no hematuria Musculoskeletal-no joint pain, no muscle tenderness Skin-no bruising, no rashes, no pruritus Neuro-no isolated weakness, no paresthesia, no weakness Psych-no depression, no anxiety Physical Exam Physical Exam: General-alert and oriented x3, no fevers, no chills HEENT-head atraumatic and normocephalic, TMs intact bilaterally, pupils equal and reactive to light, extraocular muscles intact Neck-no lymphadenopathy or thyromegaly, trachea midline Chest-clear to auscultation percussion. No rales wheezing or rhonchi Cardiac-regular rate and rhythm, normal S1 and S2, no murmurs Abdomen-normal bowel sounds, nontender, no hepatosplenomegaly Extremities-no cyanosis, clubbing, or edema Neuro-cranial nerves II through XII intact, motor and sensory function within normal limits, strength symmetrical 5/5, no focal deficits Psych-normal affect, normal mood Results & Data Vital Signs (Past 12 Hours) Vital Signs Temp Pulse Pulse Resp BP Pulse Ox 02/02/19 11:37 37.1 C 66 18 117/70 97 02/02/19 08:21 37.4 C 62 20 151/90 H 94 02/02/19 08:00 70 02/02/19 05:10 86 17 94 02/02/19 04:03 37.3 C 68 18 119/71 97 02/02/19 00:29 79 Laboratory Results 02/02/19 07:02 02/02/19 07:02 PG Care Time/CCT Total # of Minutes Spent Total Time Spent with Patient: Total time spent is greater than 50% in coordination of care (as documented) at patient's floor/unit and/or counseling patient:
[2019-02-02] MEDS: ROSUVASTATIN CALCIUM 20 MG TAB PO SCH (20:45)
[2019-02-02] MEDS: INSULIN GLARGINE SOLOSTAR 100 UNITS/ML 3 ML PEN SC SCH (20:46)
[2019-02-02] MEDS: TRAZODONE HCL 50 MG TAB PO PRN (21:59)
[2019-02-02] MEDS: CEFEPIME 2,000 MG in SYRINGE 7.5 ML IV SCH (22:02)
[2019-02-03 04:11] VITALS: TEMP 98.2
[2019-02-03] MEDS: LEVOTHYROXINE SODIUM 88 MCG TABLET PO SCH (05:41)
[2019-02-03 06:47] LABS: Hematocrit (blood only) 26.5 % (37-47); Hemoglobin 8.8 g/dL (12.0-16.0); Mean Corpuscular Hemoglobin 27.3 pg (25-34); Mean Corpuscular Hgb Conc 33.2 g/dL (32-36); Mean Corpuscular Volume 82.3 fL (80-100); Mean Platelet Volume 9.6 fL (7.4-10.4); Platelet Count 194 K/uL (130-400); RDW Coefficient of Variation 14.3 % (11.5-14.5); RDW Standard Deviation 43.3 fL (36.4-46.3); Red Blood Count 3.22 M/uL (4.2-5.4); White Blood Count 16.53 K/uL (4.8-10.8)
[2019-02-03 07:23] LABS: Est GFR (African American) 47.7; Est GFR (Non-African American) 41.2; Potassium 3.4 mmol/L (3.5-5.1)
[2019-02-03] MEDS ORDERED: POTASSIUM CHLORIDE 20 MEQ TABCR PO STA (08:46)
[2019-02-03] MEDS: SERTRALINE HCL 100 MG TABLET PO SCH (09:00)
[2019-02-03] MEDS: PANTOprazole 40 MG TAB PO SCH (09:00)
[2019-02-03] MEDS: NICOTINE 14 MG/24 HR PATCH TD SCH (09:01)
[2019-02-03] MEDS: BUDESONIDE/FORMOTEROL FUMARATE 160/4.5 60 PUFFS/INHALER INH SCH (09:01)
[2019-02-03] MEDS: HEPARIN SOD 5,000 UNIT/0.5 ML VIAL SQ SCH (09:01)
[2019-02-03] MEDS: INSULIN ASPART 100 UNITS/ML 3 ML PEN SC SCH ×2 (09:23→12:31)
--- NOTE | 2019-02-03 09:53 | Hospitalist Progress Note ---
Date of Service February 03, 2019 Assessment & Plan (1) Acute respiratory failure with hypoxia: Resolved. She has been weaned off oxygen. Stable from a respiratory standpoint. (2) Sepsis: Suspected source pneumonia vs. complicated UTI Procalcitonin 25.62 on admission Continue antibiotics for suspected UTI/pneumonia V/Q unremarkable for PE She has been weaned off pressor support and is now stable (3) Community acquired pneumonia: Given history of bronchitis, cough and fever. No large consolidation on CXR however. Currently on cefepime and doxycycline. She will be discharged on oral doxycycline for 1 more week. (4) Complicated UTI (urinary tract infection): Urine culture from [facility] growing Klebsiella. Sensitive to cefepime. (5) Fluid overload: Pulmonary edema from IV fluids. Suspect due to intrinsic renal JEANIE given unremarkable echocardiogram and BNP only elevated after IV fluids given @ [facility] (BNP unremarkable there). Resolved (6) Acute kidney failure: Improving. Creatinine down to 1.3 today. Serial BMP Restart metformin, thiazide diuretic, losartan at discharge. (7) Hypertension: Hypotensive on admission. Blood pressure now normalized. Losartan will be restarted at discharge. (8) Hyperlipidemia: Continue home med rosuvastatin 20 mg nightly (9) Metabolic acidosis: Due to sepsis. Resolved (10) Diabetes mellitus type 2 in obese: Glycemic control per pharmacy. Usual medications will be restarted at discharge. (11) Hypothyroidism: Continue home dose of Synthroid 88 mcg. (12) Nicotine abuse: Offered nicotine patch. Discussed smoking cessation (13) DVT prophylaxis: Heparin SQ 5000 units Q12H Dispositionhome today on oral antibiotic for 1 more week. Subjective Alert and oriented. Afebrile. Normal oxygen saturation on room air. She is stable for discharge today and will continue with oral doxycycline for 1 more week. Her metformin, losartan, hydrochlorothiazide can be restarted at discharge. Creatinine down to 1.3. Review of Systems Review of Systems: Constitutional-no fever or chills ENT-no blurred vision, no double vision, no epistaxis, no sore throat Respiratory-no cough, no wheezing, no shortness of breath Cardiac-no palpitations, no chest pain, no syncope GI-no nausea, vomiting, diarrhea, melena, hematochezia -no urinary retention, no urinary incontinence, no dysuria, no hematuria Musculoskeletal-no joint pain, no muscle tenderness Skin-no bruising, no rashes, no pruritus Neuro-no isolated weakness, no paresthesia, no weakness Psych-no depression, no anxiety Physical Exam Physical Exam: General-alert and oriented x3, no fevers, no chills HEENT-head atraumatic and normocephalic, TMs intact bilaterally, pupils equal and reactive to light, extraocular muscles intact Neck-no lymphadenopathy or thyromegaly, trachea midline Chest-clear to auscultation percussion. No rales wheezing or rhonchi Cardiac-regular rate and rhythm, normal S1 and S2, no murmurs Abdomen-normal bowel sounds, nontender, no hepatosplenomegaly Extremities-no cyanosis, clubbing, or edema Neuro-cranial nerves II through XII intact, motor and sensory function within normal limits, strength symmetrical 5/5, no focal deficits Psych-normal affect, normal mood Results & Data Vital Signs (Past 12 Hours) Vital Signs Temp Pulse Pulse Resp BP BP Pulse Ox 02/03/19 07:30 68 02/03/19 07:22 36.8 C 67 19 131/80 97 02/03/19 04:10 36.8 C 65 18 124/74 96 02/03/19 00:11 36.5 C 84 20 128/76 97 Laboratory Results 02/03/19 06:21 02/03/19 06:21 PG Care Time/CCT Total # of Minutes Spent Total Time Spent with Patient: Total time spent is greater than 50% in coordination of care (as documented) at patient's floor/unit and/or counseling patient:
--- NOTE | 2019-02-03 09:56 | Discharge Summary ---
Date of Service February 03, 2019 Admission HPI Per Admitting Provider Patient is a 68 years old female with past medical history of hypertension, diabetes, hyperlipidemia, hypothyroidism on Synthroid , anxiety disorder, smoker approximately half a pack for 35 years is direct admit from [facility] emergency department to [facility] for respiratory failure and suspicion that patient may have pulmonary embolism since her d-dimer was elevated to 4000. Patient presented today to the [facility] emergency room for shortness of breath and feeling sick. Patient states that her cough and broke bronchitis has been ongoing for 3 weeks and it started when she was exposed to her daughter, who was also sick. Patient saw her primary care physician for 3 times for this issue and she was prescribed Deltasone oral taper, azithromycin, cough medicine guaifenesin codeine. Patient states she started taking this medication on Friday this week and it did not help her and that is why she went to the emergency room [place] with her . Patient said also that she had urinary tract infection after she was diagnosed with bronchitis and that has been ongoing as well. Patient said that she does not use oxygen at home but they put her in the emergency room due to shortness of breath to 2 L of oxygen. Patient never had issues with her kidneys in the past. She takes metformin p.o. to control her diabetes. In the emergency room at [facility] labs were drawn and it shows a BNP of 158 (normal is 0-100), D-dimers of 4000 (100-400), lactic acid of 3(normal 0.4-2), PT 14.9, INR 1.29, PTT 15.4, WBC 26.6, troponin of 0.11 (normal 0-0.10), elevated creatinine kinase 814, creatinine 3.7, GFR 13, sodium 137, potassium 2.9, anion gap 21.9, BUN 51. Repeated lactic acid was 2.8. EKG shows sinus rhythm with LVH at [address] segment Patient was given 2 L of normal saline in the [place] emergency room, and [address] in the EMS. She was given Solu-Medrol 125 mg IV in the emergency room, she was given albuterol treatment, she was given Zosyn 3.3751, and patient was started on heparin drip for possible PE. Decision was made to admit patient to the intensive care unit for possibly pulmonary embolism, sepsis, metabolic acidosis, acute kidney failure, dehydration, possible pneumonia, and possibly urinary tract infection. Admission Exam Per Admitting Provider Constitutional: WD/WN, vitals as above well developed, + acute distress and + obese Eyes: PERRL, conjunctivae normal, anicteric sclerae ENMT: external ear and nose normal, oropharynx normal Neck: trachea midline, no thyromegaly Respiratory: Auscultation: + crackles and + wheezes Cardiovascular: Heart Sounds: normal S1 and normal S2 Palpation: + palpable S3 Vessels: dorsalis pedis pulses present Gastrointestinal (Abdomen): normal bowel sounds, soft, nontender, no hepatosplenomegaly Musculoskeletal: no cyanosis or clubbing, extremities motor strength 5/5 Skin: no rashes, warm and dry Neurologic: patellar DTR's 2+ bilat, sensation intact Lymphatic: no cervical or axillary lymphadenopathy Principal Diagnosis UTI present on admission with septic shock and acute respiratory failure Discharge Exam Physical Exam: General-alert and oriented x3, no fevers, no chills HEENT-head atraumatic and normocephalic, TMs intact bilaterally, pupils equal and reactive to light, extraocular muscles intact Neck-no lymphadenopathy or thyromegaly, trachea midline Chest-clear to auscultation percussion. No rales wheezing or rhonchi Cardiac-regular rate and rhythm, normal S1 and S2, no murmurs Abdomen-normal bowel sounds, nontender, no hepatosplenomegaly Extremities-no cyanosis, clubbing, or edema Neuro-cranial nerves II through XII intact, motor and sensory function within normal limits, strength symmetrical 5/5, no focal deficits Psych-normal affect, normal mood Discharge Data Allergies Allergy/AdvReac Type Severity Reaction Status Date / Time atorvastatin [From Lipitor] AdvReac Weakness Verified 01/30/19 21:45 Consultations 01/30/19 18:24 Consult [employer] Routine Ordered Studies 01/30/19 22:34 US point of care ultrasound Urgent 01/30/19 23:15 US point of care ultrasound Urgent 01/31/19 09:10 US venous doppler [facility] Urgent Hospital Course (1) Acute respiratory failure with hypoxia: Resolved. She has been weaned off oxygen. Stable from a respiratory standpoint. (2) Sepsis: Suspected source pneumonia vs. complicated UTI Procalcitonin 25.62 on admission Continue antibiotics for suspected UTI/pneumonia V/Q unremarkable for PE She has been weaned off pressor support and is now stable (3) Community acquired pneumonia: Given history of bronchitis, cough and fever. No large consolidation on CXR however. Currently on cefepime and doxycycline. She will be discharged on oral doxycycline for 1 more week. (4) Complicated UTI (urinary tract infection): Urine culture from [facility] growing Klebsiella. Sensitive to cefepime. (5) Fluid overload: Pulmonary edema from IV fluids. Suspect due to intrinsic renal JEANIE given unremarkable echocardiogram and BNP only elevated after IV fluids given @ [facility] (BNP unremarkable there). Resolved (6) Acute kidney failure: Improving. Creatinine down to 1.3 today. Serial BMP Restart metformin, thiazide diuretic, losartan at discharge. (7) Hypertension: Hypotensive on admission. Blood pressure now normalized. Losartan will be restarted at discharge. (8) Hyperlipidemia: Continue home med rosuvastatin 20 mg nightly (9) Metabolic acidosis: Due to sepsis. Resolved (10) Diabetes mellitus type 2 in obese: Glycemic control per pharmacy. Usual medications will be restarted at discharge. (11) Hypothyroidism: Continue home dose of Synthroid 88 mcg. (12) Nicotine abuse: Offered nicotine patch. Discussed smoking cessation (13) DVT prophylaxis: Heparin SQ 5000 units Q12H Dispositionhome today on oral antibiotic for 1 more week. Total Time Total Time Spent Total Time Spent (In Minutes): 35 Total Time Includes: Examination of the Patient, Discharge Planning and Medication Reconciliation Discharge Plan Discharge Items Patient Disposition: Home - Self-Care Reason For Visit: SOB,HYPOTENSION,PULMONARY EMBOLISM Discharge Diagnosis: Klebsiella UTI with septic shock and acute respiratory failure Activity: Resume your previous activity Driving/Machine Use: No limitations Weightbearing: Full weightbearing Non-emergency contact: Primary Care Provider Call non-emergency contact if: you have any medication questions and your symptoms worsen Follow-up/Referrals: Ana Carbajal [Primary Care Provider] - Diet: Carb Consistent or DM2 Addtl Attending Provider Instructions: Take all antibiotics until gone Pending Studies at Discharge: No Stand-Alone Forms: My [facility] [employer] Medications and DC Order Prescriptions: New doxycycline hyclate 100 mg capsule 100 mg PO BID 7 Days Qty: 14 RF: 0 Continued trazodone 50 mg tablet 50 mg PO HS PRN (Reason: Sleep) RF: 0 sertraline 100 mg tablet 100 mg PO DAILY RF: 0 levothyroxine 88 mcg tablet 88 mcg PO DAILY RF: 0 pantoprazole 40 mg tablet,delayed release (DR/EC) 40 mg PO DAILY RF: 0 codeine-guaifenesin 10-100 mg/5 mL liquid 5 - 10 ml PO HS PRN (Reason: Cough) RF: 0 albuterol sulfate [Ventolin HFA] 90 mcg/actuation HFA aerosol inhaler 2 inh inhalation Q4H PRN (Reason: shortness of breath) RF: 0 metformin 500 mg tablet extended release 24 hr 1,000 mg PO DAILY RF: 0 rosuvastatin 20 mg tablet 20 mg PO DAILY RF: 0 losartan-hydrochlorothiazide 100-12.5 mg tablet 1 tab PO DAILY RF: 0 Trulicity 0.75 mg/0.5 mL pen injector 0.75 mg subcut WK RF: 0 Discharge Orders: Discharge Order (Routine); Ordered 02/03/19 Ordered By: Demarcus Vallecillo/Other Patient Handouts: Diabetes Nursing Home Complications, Diabetes Resources, Diabetes Type 2 Coping, Diabetes Healthy Meals, Diabetes Carbs, Diabetes Exercise Benefits, Diabetes Exercise Get Started, Diabetes Activity Tips, Diabetes Living Life, Diabetes Manage A1C Test Admission Data Admit Date/Time: 01/30/19 20:51 Attending Provider: Dhiraj Connor Admit Provider: Tony Celaya Primary Care Provider: Ana Carbajal Other Providers: Irvin Wadsworth
[2019-02-03 11:34] VITALS: O2SAT 98
[2019-02-03 13:22] VITALS: BP 124/74; PULSE 66
[2019-02-03] MEDS ORDERED: CEFEPIME 2,000 MG in SYRINGE 7.5 ML IV SCH (15:00)
--- NOTE | 2019-02-05 08:22 | Coding Query ---
CODING QUERY To promote full compliance with coding requirements relating to patient care, provider participation is requested in all cases of food and nutrition services assistant uncertainty. Please assist us with the question(s) below: Coding Question(s): Dr. Connor, The critical care consultation report and progress notes state the following, " Elevated trop- has peaked and downtrending. Likely 2/2 type II SC. No sig changes seen on EKG. As attending physician, please clarify if the patient had: ( ) Type II SC ( ) NSTEMI ( ) SC, other (please specify) ( x ) Demand ischemia ( ) Elevated troponin only ( ) Other, please explain ( ) Unable to clinically determine Physician's Response(s): Thank you for your time, CHRISTINE Toabr, [facility]
== END 2019-02-03 14:25 | disposition home or self-care (01) | DRG 871 ==
LOC: 1E 20:51 → SUATTDRO 20:51 → 2N 02-01 11:26